=== PATIENT | male | born 1940 | race African-American/Black ===

== ENCOUNTER 2020-04-19 05:56 | Inpatient (IN) | payer BC ==
[2020-04-19] VITALS (15 sets, daily range): BP systolic 115–143; BP diastolic 53–83
[~2020-04-19] VITALS: Ht 172.7 cm; Wt 83.9 kg
[~2020-04-19 05:56] MED LIST: ACIPHEX20 MG ORAL; ASPIR 8181 MG ORAL; ATIVAN2 MG ORAL; ATORVASTATIN CA10 MG ORAL; CELEBREX200 MG ORAL; CIPRO500 MG PO; GLIPIZIDE ER10 MG ORAL; GLUCOPHAGE500 MG ORAL; HYDROMORPHONE HC2 M1 PO; IBUPROFEN800 MG PO; Insulin SUBQ; JANUVIA25 MG ORAL; LEVEMIR FL100 UNIT/1 SUBQ; LIPITOR10 MG PO; LISINOPRIL40 MG ORAL; METFORMIN HCL500 M1 ORAL; METFORMIN HCL500 MG PO; NORCO 5-325 TA1 EACH ORAL; NORVASC10 MG ORAL; OXYCODON-ACETA1 EAC2 ORAL; PIOGLITAZONE45 MG ORAL; ROBAXIN-750750 MG PO; TACTINAL500 M1 PO; TAPAZOLE10 MG ORAL; TEMAZEPAM30 MG ORAL; VICTOZA 3-0.6 MG/0.1 SQ; ZESTRIL10 MG ORAL
[2020-04-19] MEDS ORDERED: ceFAZolin sod 1 GM in NS 55 ML IVPB ONE (07:00)
[2020-04-19] MEDS ORDERED: Thrombin 5000 units spray kit TOPIC ONE (07:15)
[2020-04-19] MEDS ORDERED: Vancomycin 1gm vial IVPB ONE (07:15)
[2020-04-19] MEDS ORDERED: EPINEPHrine 1mg/1ml Amp ONE (07:15)
[2020-04-19] MEDS ORDERED: Bacitracin 50000 Units Vial ONE ×2 (07:16→07:23)
[2020-04-19] MEDS ORDERED: Thrombin 5000 units TOPIC ONE ×2 (07:16→07:38)
[2020-04-19] MEDS ORDERED: Lidocaine 1% Plain 30 ml INJ ONE (07:16)
[2020-04-19] MEDS ORDERED: Bupivacaine 0.5% Inj 30 ml vial INJ ONE (07:16)
[2020-04-19] MEDS ORDERED: Gelfoam Size TOPIC ONE (07:16)
[2020-04-19] MEDS ORDERED: Bupivacaine w/Epi 0.25% 50ml vial INJ ONE (07:16)
[2020-04-19] MEDS ORDERED: Gelatin Sponge,Absorbable Syr TP ONE (07:23)
[2020-04-19] MEDS ORDERED: fentaNYL 100 mcg/2 mL IV ONE (07:31)
[2020-04-19] MEDS ORDERED: Lidocaine 1% MPF 10mg/ml 5ml ONE (07:32)
[2020-04-19] MEDS ORDERED: Rocuronium Bromide 50mg/5ml Inj IV ONE (07:37)
[2020-04-19] MEDS ORDERED: Succinylcholine 20mg/ml 10ml vial ONE (07:37)
--- NOTE | 2020-04-19 08:38 | Anethesia Preoperative Eval ---
Anesthesia Pre-op PMH/ROS General Date of Evaluation: Apr 19, 2020 Time of Evaluation: 08:32 Anesthesiologist: Víctor ASA Score: ASA 3 Mallampati Score Class I : Soft palate, uvula, fauces, pillars visible Class II: Soft palate, uvula, fauces visible Class III: Soft palate, base of uvula visible Class IV: Only hard plate visible Mallampati Classification: Class II Surgeon: Annmarie Diagnosis: Lumbar radiculopathy Surgical Procedure: Revision of lumbar fusion Anesthesia History: none Family History: no anesthesia problems Allergies: Coded Allergies: CODEINE (Verified Allergy, Unknown, 01/25/11) WARFARIN (Verified Allergy, Unknown, 10/22/08) Uncoded Allergies: CODEINE/WARFARIN (Allergy, Intermediate, STOMACH ACHE, 10/13/12) Medications: see eMAR Patient NPO?: Yes Past Medical History Cardiovascular: Reports: HTN; Denies: CAD, OK, valve dz, arrhythmia, other Pulmonary: Denies: asthma, COPD, KHARI, other Gastrointestinal/Genitourinary: Reports: GERD; Denies: CRI, ESRD, other Neurologic/Psychiatric: Reports: depression/anxiety, other - chronic pain; Denies: dementia, CVA, TIA Endocrine: Reports: DM - on insulin poorly controled; Denies: hypothyroidism, steroids, other HEENT: Reports: cataract (L), cataract (R) - s/p bilateral Sx; Denies: glaucoma, NAVAJO (L), NAVAJO (R), other Hematology/Immune: Reports: anemia; Denies: DVT, bleeding disorder, other Musculoskeletal/Integumentary: Reports: OA PMH Narrative: as above PSxH Narrative: Multiple see H&P Anesthesia Pre-op Phys. Exam Physician Exam Last Vital Signs Date Time Temp Pulse Resp B/P (MAP) Pulse Ox O2 Delivery O2 Flow Rate FiO2 04/19/20 06:44 Room Air 04/19/20 06:36 97.0 81 18 143/76 (98) 100 Constitutional: NAD Neurologic: CN 2-12 intact Cardiovascular: RRR, no M/R/G Respiratory: CTA Gastrointestinal: S/NT/ND Airway Exam Mallampati Score: Class II MO: limited Neck: stiff ROM: limited Teeth: missing Dentures: no upper, no lower Anesthesia Pre-op A/P Labs see chart Accucheck 78 at 8AM Studies Pre-op Studies: EKG - SR Risk Assessment & Plan Assessment: ASA 3 Plan: GA with ETT prone position neuromonitoring Status Change Before Surgery: No Pre-Antibiotics Drug: Ancef 2gr. Given Within 1 Hr of Incision: Yes Time Given: 09:25 Kade Renee MD Apr 19, 2020 08:38
[2020-04-19] MEDS ORDERED: Heparin 5000 units/ml inj ONE (09:26)
--- NOTE | 2020-04-19 09:26 | Pre-Procedure Note/Attestation ---
Pre-Procedure Note/Attestation Complete Prior to Procedure Procedure Narrative: L23 psf, decompression and TLIF Indications for Procedure Pre-Operative Diagnosis: sp l3-s1 fusion, l23 hnp and discopathy Attestation I attest that I discussed the nature of the procedure; its benefits; risks and complications; and alternatives (and the risks and benefits of such alternatives), prior to the procedure, with the patient (or the patient's legal outbound call center representative). I attest that, if there was a reasonable possibility of needing a blood transfusion, the patient (or the patient's legal outbound call center representative) was given the [facility] standardized written summary, pursuant to the Wilfredo Nicole Blood Safety Act ([place] Health and Safety Code # 1645, as amended). I attest that I re-evaluated the patient just prior to the surgery and that there has been no change in the patient's H&P, except as documented below: Tacho Anguiano MD Apr 19, 2020 09:26
[2020-04-19] MEDS ORDERED: Morphine Sulfate 10mg/ml Inj ONE (09:35)
[2020-04-19] MEDS ORDERED: Sodium Chloride 10ml vial INJ ONE ×2 (09:35→10:19)
[2020-04-19] MEDS ORDERED: Acetaminophen (Non formulary) 100 ML IV ONE (10:00)
[2020-04-19] MEDS ORDERED: ePHEDrine 50mg/ml Inj ONE (10:19)
[2020-04-19] MEDS ORDERED: Neostigmine 1mg/ml 10ml Inj ONE (10:40)
[2020-04-19] MEDS ORDERED: Glycopyrrolate 0.2mg/ml 1ml Vial ONE (10:40)
[2020-04-19] MEDS ORDERED: Ketorolac 30mg Inj IV PRN (11:45)
[2020-04-19] MEDS ORDERED: LR 1000ml 1,000 ML IVLG SCH (11:45)
[2020-04-19] MEDS ORDERED: Metoclopramide 10mg/2ml Inj IVP PRN (13:00)
--- NOTE | 2020-04-19 13:12 | Brief Operative Note ---
Immediate Post Operative Note Operative Note Pre-op Diagnosis: sp l3-s1 fusion, l23 hnp and discopathy Procedure: Facetectomy and redo laminectomy L23, partial discectomy, PSF L23, revision h ardware L345 Post-op Diagnosis: same as pre-op Surgeon: bonny Line Painting Machine Operator: nona walls Anesthesiologist: sonia Anesthesia: general Specimen: yes Complications: none Condition: stable Fluids: 1200 Estimated Blood Loss: volume - 200 Drains: hemovac Implant(s) used?: Yes - Tacho Sabillon MD Apr 19, 2020 13:12
[2020-04-19] MEDS: Hydromorphone 0.5mg/0.5ml inj IVP PRN ×3 (13:35→14:14)
--- NOTE | 2020-04-19 13:37 | Immediate Post-Op Evaluation ---
Immediate Post-Op Evalulation Immediate Post-Op Evalulation Procedure: Revision of lumbar fusion with decompression at L2-L3 Date of Evaluation: Apr 19, 2020 Time of Evaluation: 13:36 IV Fluids: 1200 Blood Products: none Estimated Blood Loss: 200 Urinary Output: 300 Blood Pressure Systolic: 132 Blood Pressure Diastolic: 76 Pulse Rate: 84 Respiratory Rate: 22 O2 Sat by Pulse Oximetry: 99 Temperature (Fahrenheit): 98.3 Pain Score (1-10): 2 Nausea: No Vomiting: No Complications none Patient Status: reacts, patent, extubated, none Hydration Status: adequate Kade Renee MD Apr 19, 2020 13:37
[2020-04-19 13:51] LABS: HEMATOCRIT 27.6 % (42.0-52.0); HEMOGLOBIN 8.8 G/DL (14.2-18.0); MEAN CORPUSCULAR VOLUME 120 FL (80-99); PLATELET COUNT 372 K/UL (150-450); RED CELL DISTRIBUTION WIDTH 13.8 % (11.6-14.8); WHITE BLOOD COUNT 7.8 K/UL (4.8-10.8)
--- NOTE | 2020-04-19 14:27 | NUR ---
CASE MANAGEMENT:REVIEW 04/19/20 80YR OLD MALE HERE FOR ELECTIVE SURGERY SI: T~97.0 HR~81 RR~18 BP~143/76 SAT~100% ON RA RBC-2.30 H/H-8.8/27.6 IS: TO SURGERY FOR : REVISION OF LUMBAR FUSION W/DECOMPRESSION AT L2-L3 IV ANCEF Q8HRS IVF@100/HR IV DILAUDID PRN PAIN : CURRENTLY IN SURGERY OVER FLOW AREA
[2020-04-19] MEDS ORDERED: PCA Education Pamphlet MISC ONE (15:15)
[2020-04-19] MEDS ORDERED: PCA HYDROmorphone 30mg/30ml Syr IV PRN (15:15)
[2020-04-19] MEDS ORDERED: Rate Change PCA 1 Each MISC PRN (15:15)
--- NOTE | 2020-04-19 15:21 | NUR ---
NURSE NOTES: Patient arrived on unit. Stable. Breathing is even and unlabored on 3L oxygen via nc. Patient instructed to use call light for assistance, verbalized understanding. Surgical dressing c/d/i. Hemovac compressed and draining bloody output. Patient is in bed in locked and lowest position with call light within reach. All safety measures provided. Will continue plan of care.
[2020-04-19] MEDS: D5 1/2NS 1,000 ML IV SCH (16:30)
[2020-04-19] MEDS: Docusate 100mg cap ORAL SCH (17:59)
[2020-04-19] MEDS: ceFAZolin sod 1 GM in D5W 55 ML IV SCH (17:59)
--- NOTE | 2020-04-19 18:00 | NUR ---
NURSE NOTES: LOCKSTITCH HEMMER pamphlet and teaching given to patient. Pt verbalized understanding.
--- NOTE | 2020-04-19 18:30 | NUR ---
NURSE NOTES: hemovac: 75cc bloody output.
[2020-04-19] MEDS ORDERED: Chloraseptic Spray 20mL Bottle ORAL SCH (18:53)
[2020-04-19] MEDS: PCA shift volume MISC SCH (19:00)
[2020-04-19] MEDS ORDERED: Chloraseptic Spray 20mL Bottle ORAL PRN (19:00)
--- NOTE | 2020-04-19 19:46 | NUR ---
NURSE NOTES: Hand off to Rebecca LINK.
--- NOTE | 2020-04-19 20:29 | NUR ---
NURSES NOTE: Report received from NIKOLAY Zayas. Rounds completed. Pt in bed, A/OX4, states pain is controlled with SURGICAL RESIDENT pump Dilaudid. No outward s/s of distress noted. Breathing is even and unlabored on 3L nasal canula. Coyle in place. Hemovac in place- engaged. Dressing- posterior back is clean, dry, intact. All due medications will be administered. Bed at lowest level. Pt will continue to be monitored. Call light made available for assistance.
--- NOTE | 2020-04-19 20:29 | Consultation ---
DATE OF CONSULTATION: 04/19/2020 CONSULTING PHYSICIAN: Navneet Huitron MD. REFERRING PHYSICIAN: Tacho Anguiano MD. REASON FOR CONSULTATION: Acute pain consult. HISTORY OF PRESENT ILLNESS: Dear Dr. Tacho Anguiano, Thank you kindly for consulting me to evaluate and render an opinion as to how to proceed in the management of this patient's acute postoperative lumbar spine pain after his multiple level lumbar spine fusion surgery with instrumentation today. On your request, I saw the patient at the bedside with the nurse, NIKOLAY Zayas. I performed a detailed history and physical examination. I reviewed the medical record in detail including advanced directives. PAST MEDICAL HISTORY: 1. Acute postoperative lumbar spine pain, status post revision lumbar spine fusion surgery with instrumentation by Dr. Tacho Anguiano, April 2020. 2. Chronic lumbar spine pain. 3. Hypertension. 4. Diabetes. 5. Severe insomnia. 6. Hypercholesterolemia. PAST SURGICAL HISTORY: Three previous lumbar spine surgeries. SOCIAL HISTORY: The patient is recently , his in December 2019. The patient currently lives alone in [place], he does have support from his neighbors and his niece. The patient denies tobacco usage. 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 MEDICATIONS: At home, diabetic medications, Norvasc 10 mg daily, lisinopril, Ativan 2 mg every other day p.r.n. insomnia, temazepam 30 mg nightly p.r.n., proton pump inhibitor, and Lipitor. ALLERGIES: Codeine and warfarin. The patient has tolerated Dilaudid without difficulties. FAMILY HISTORY: Both parents in their late 80s with coronary artery disease. REVIEW OF SYSTEMS: Per Dr. Ye. PHYSICAL EXAMINATION: VITAL SIGNS: Age 80. Height 5 feet 8 inches. Weight 185 pounds. Body mass index 28. Afebrile, pulse of 65, respirations 19, blood pressure 130/73. Oxygen saturation 99%. HEENT: Normocephalic, atraumatic. GENERAL: This is an 80-year-old gentleman, who appears his stated age; however, he is a vigorous 80-year-old. He is alert and oriented. His mental acuity appears sharp. He has good communication skills and appropriate expectations for postoperative pain control. CARDIOPULMONARY: Deferred to Dr. Ye. ABDOMEN: Tender by incision area. MUSCULOSKELETAL: Pain with range of motion to lumbar spine. Hemovac drain holding suction. Moving all extremities x4. GENITOURINARY: Coyle catheter in place. LABORATORY AND DIAGNOSTIC DATA: Postoperative diagnostic testing from April 19, 2020, postop day #0 in recovery room shows white count 8, hematocrit 28, platelets 372,000. Preoperative chemistry from April 14, 2020 shows glucose 86, sodium 140, potassium 4.4, chloride 107, bicarb 24, BUN 15, creatinine 0.9. Calcium 9.5. Total protein is 8.0, albumin 4.0. AST 21, ALT 28, total bilirubin 0.5. Glycosylated hemoglobin 7.4. Sedimentation rate greater than 130. IMPRESSION: 1. Acute postoperative lumbar spine pain, status post revision lumbar spine fusion surgery with instrumentation by Dr. Tacho Anguiano, April 2020. 2. Chronic lumbar spine pain. 3. Hypertension. 4. Diabetes. 5. Severe insomnia. 6. Hypercholesterolemia. TREATMENT RECOMMENDATIONS: I spoke with the hospital pharmacist, Vielka. We will start the patient on Dilaudid ELECTRIC FAN ASSEMBLER with a 0.2 mg demand dose at 12-minute lockout and 1 mg 1-hour limit. There will be no underlying basal or continuous rate, to lower the risk of respiratory depression. Currently, the patient appears wide-awake with no signs of respiratory distress. The patient admits to smoking high dose marijuana for over 65 years. In that regard, I will place him on Marinol 2.5 mg orally every 12 hours at 9 a.m. and 9 p.m. If this dose is well tolerated and the patient shows no signs of oversedation, I will consider increasing the dosing to every 8-hour frequency. In addition to the ELECTRIC FAN ASSEMBLER, I have added a breakthrough dose of Dilaudid 0.5 mg intravenously every two hours p.r.n. for severe breakthrough pain. The patient states that he uses high dose benzodiazepines either Ativan 2 mg or temazepam, Restoril 30 mg every other night for severe insomnia. I removed the lorazepam, Ativan from his drug medication options, but we will permit a p.r.n. dose of temazepam for severe insomnia. I have written detailed instructions for the nursing and pharmacy departments to be certain to wait at least 60 minutes between any doses of sedating, pain or narcotic agents, to avoid respiratory depression in this elderly gentleman. The patient chronically uses a proton pump inhibitor. I have restarted Protonix at 40 mg daily and I have also added a p.r.n. dose of Mylanta 30 mL every 6 hours in case of any GERD symptom exacerbation. Zofran is available as a rescue antiemetic. I have ordered Benadryl 25 mg orally every 6 hours p.r.n. for any itching complaints. I have asked nursing to place Chloraseptic spray at the bedside to help with postoperative sore throat complaints. Dr. Anguiano's has requested for the Coyle catheter to be removed early tomorrow morning on postoperative day #1. I have ordered Flomax 0.4 mg to be dosed tonight, to help reduce the risk for urinary retention in this elderly gentleman. Dr. Ye's cardiology consultation is appreciated for the patient's multiple medical illnesses including diabetes and hypertension. We will follow the output from the indwelling lumbar spine drain catheter and physical therapy will start as tolerated. The patient does live at home, but does have a good support system with his niece and neighbors. We will see how the patient progresses with physical therapy to determine if he can return home with his social support system, or if he needs to transfer to a rehab facility postoperatively. I have ordered an incentive spirometer to encourage good pulmonary toilet with his chronic smoking history. I will defer DVT prophylaxis to the surgeon. Navneet Huitron M.D. DR: DAIN JOB#: [id number] CC:
[2020-04-19] MEDS: Tamsulosin 0.4mg cap ORAL SCH (21:30)
[2020-04-19] MEDS: Dronabinol 2.5mg Cap ORAL SCH (21:30)
[2020-04-20] VITALS: BP 148/60
[2020-04-20] MEDS: Hydromorphone 0.5mg/0.5ml inj IVP PRN ×5 (00:17→18:36)
[2020-04-20] MEDS: ceFAZolin sod 1 GM in D5W 55 ML IV SCH ×2 (02:26→09:22)
[2020-04-20] MEDS: D5 1/2NS 1,000 ML IV SCH ×3 (02:27→21:50)
[2020-04-20 04:00] VITALS: BP 114/69
--- NOTE | 2020-04-20 06:48 | NUR ---
NURSE HAND-OFF: Important Events on Shift:[ Requested end title co2 reader for pt x2 from PT. Has not delivered it yet. Pt stood by side of bed this AM. Requested to walk to restroom however pt has sharp shooting pains to left hip making gait very unreliable. Suggested once PT walks with him he will be able to use BR with assist.] Patient Status: [stable] Diet: [clear liquid] Pending Orders: [n/a] Pending Results/Labs:[AM labs still pending] Pending MD notification:[n/a] Latest Vital Signs: Temperature 96.9 , Pulse 75 , B/P 114 /69 , Respiratory Rate 20 , O2 SAT 98 , Nasal Cannula, O2 Flow Rate 3 . Vital Sign Comment: [wnl] Latest Alberts Fall Score: 35 Fall Risk: Safety Measures: Call light Within Reach, Bed Alarm Zone 2, Side Rails Side Rails x2, Bed position Low and Locked. Fall Precautions: Yellow Socks Patient Fall Education Report given to [].
[2020-04-20] MEDS: PCA shift volume MISC SCH ×2 (07:00→19:00)
--- NOTE | 2020-04-20 07:43 | 48 Hour Post Anesthesia Eval ---
Post Anesthesia Evaluation Procedure: Revision of lumbar fusion with decompression at L2-L3 Date of Evaluation: Apr 20, 2020 Time of Evaluation: 07:42 Blood Pressure Systolic: 136 0: 72 Pulse Rate: 68 Respiratory Rate: 20 Temperature (Fahrenheit): 97.8 O2 Sat by Pulse Oximetry: 98 Airway: patent Nausea: No Vomiting: No Pain Intensity: 3 Hydration Status: adequate Cardiopulmonary Status: stable Mental Status/LOC: patient returned to baseline Follow-up Care/Observations: n/a Post-Anesthesia Complications: none Follow-up care needed: N/A Kade Renee MD Apr 20, 2020 07:43
--- NOTE | 2020-04-20 07:50 | NUR ---
HAND OFF: Report given to NIKOLAY Tovar.
[2020-04-20 08:00] VITALS: BP 142/72
--- NOTE | 2020-04-20 08:11 | NUR ---
NURSE NOTES: Dr. Renee ordered Bed side glucose AC/HS and average insulin sliding. Order read back and will put it in.
[2020-04-20 09:02] LABS: HEMATOCRIT 29.7 % (42.0-52.0); HEMOGLOBIN 9.3 G/DL (14.2-18.0); MEAN CORPUSCULAR VOLUME 123 FL (80-99); PLATELET COUNT 383 K/UL (150-450); RED CELL DISTRIBUTION WIDTH 13.8 % (11.6-14.8); WHITE BLOOD COUNT 6.9 K/UL (4.8-10.8)
--- NOTE | 2020-04-20 09:10 | NUR ---
PT EVALUATION NOTE Patient seen for initial evaluation and treatment initiated. Patient presents with impaired functional mobility and pain s/p lumbar surgery. Patient instructed in log roll technique for in/OOB and in back precautions. Patient required CGA/min assist for bed mobility and transfers with FWW. Patient able to ambulate 50 ft with CGA and FWW, slowed pace and guarded. Patient will benefit from skilled inpatient PT intervention to improve postural stability for improved level of functional mobility, safety and compliance with back precautions. Recommend discharge home with home PT for home safety evaluation once medically cleared by MD. Recommend raised toilet seat for home, patient states he has a FWW at home. Addendum: 04/20/20 at 1314 by SHY CISSE PT Amended: Links added.
[2020-04-20] MEDS: Docusate 100mg cap ORAL SCH ×2 (09:22→17:23)
[2020-04-20] MEDS: Dronabinol 2.5mg Cap ORAL SCH ×2 (09:22→17:23)
--- NOTE | 2020-04-20 10:56 | NUR ---
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
--- NOTE | 2020-04-20 11:01 | NUR ---
NURSE NOTES: Dr. Garcia called and reconcile home medications. Order read back and will put it in.
[2020-04-20 12:00] VITALS: BP 152/75
[2020-04-20] MEDS: Lisinopril 20mg tab ORAL SCH (12:25)
[2020-04-20] MEDS ORDERED: Tamsulosin 0.4mg cap ORAL SCH (13:00)
--- NOTE | 2020-04-20 13:01 | Pain Management Progress Note ---
Allergies: Coded Allergies: CODEINE (Verified Allergy, Unknown, 01/25/11) WARFARIN (Verified Allergy, Unknown, 10/22/08) Uncoded Allergies: CODEINE/WARFARIN (Allergy, Intermediate, STOMACH ACHE, 10/13/12) Vitals Vital Signs Date Time Temp Pulse Resp B/P (MAP) Pulse Ox O2 Delivery O2 Flow Rate FiO2 04/20/20 12:25 152/75 04/20/20 12:25 83 152/75 04/20/20 12:00 97.2 83 20 152/75 (100) 96 04/20/20 12:00 83 20 96 04/20/20 09:00 Room Air 04/20/20 08:03 98 Room Air 21 04/20/20 08:00 97.3 83 19 142/72 (95) 98 04/20/20 08:00 83 19 98 04/20/20 07:43 68 20 98 Medications Current Medications Acetaminophen (Tylenol) 650 mg Q4H PRN ORAL headache; Start 04/19/20 at 13:00; Stop 05/19/20 at 12:59 Al Hydroxide/Mg Hydroxide (Mylanta) 30 ml Q6H PRN ORAL gerd; Start 04/19/20 at 19:00; Stop 05/19/20 at 18:59 Amlodipine Besylate (Norvasc) 5 mg DAILY ORAL Last administered on 04/20/20at 12:25; Start 04/20/20 at 11:15; Stop 05/20/20 at 11:14 Dextrose (Dextrose 50%) 25 ml Q30M PRN IV Hypoglycemia; Start 04/20/20 at 08:15; Stop 07/19/20 at 08:14 Dextrose (Dextrose 50%) 50 ml Q30M PRN IV Hypoglycemia; Start 04/20/20 at 08:15; Stop 07/19/20 at 08:14 Dextrose/Sodium Chloride 1,000 ml @ 100 mls/hr Q10H IV Last administered on 04/20/20at 02:27; Start 04/19/20 at 16:30; Stop 05/19/20 at 16:29 Diphenhydramine HCl (Benadryl) 25 mg Q6H PRN ORAL Itching; Start 04/19/20 at 19:00; Stop 05/19/20 at 18:59 Docusate Sodium (Colace) 100 mg TWICE A DAY ORAL Last administered on 04/20/20at 09:22; Start 04/19/20 at 18:00; Stop 05/19/20 at 17:59 Dronabinol (Marinol) 2.5 mg Q12H ORAL Last administered on 04/20/20at 09:22; Start 04/19/20 at 21:00; Stop 07/18/20 at 20:59 Hydromorphone HCl 30 ml @ 0 mls/hr Q24H PRN IV For Pain Last administered on 04/19/20at 18:00; Start 04/19/20 at 15:15; Stop 04/21/20 at 15:14 Hydromorphone HCl (Dilaudid) 0.5 mg Q2H PRN IVP Severe Breakthru Pain (>7) Last administered on 04/20/20at 12:25; Start 04/19/20 at 19:00; Stop 04/26/20 at 18:59 Insulin Aspart (NovoLOG) BEFORE MEALS AND HS SUBQ ; Start 04/20/20 at 11:30; Stop 07/19/20 at 11:29 Insulin Detemir (Levemir) 20 units BEDTIME SUBQ ; Start 04/20/20 at 21:00; Stop 07/19/20 at 20:59 Lisinopril (PriniviL) 40 mg DAILY ORAL Last administered on 04/20/20at 12:25; Start 04/20/20 at 11:15; Stop 05/20/20 at 11:14 Miscellaneous Medication (AERIAL CROP DUSTER Rate Change) 1 ea DAILY PRN MISC AERIAL CROP DUSTER RATE CHANGE; Start 04/19/20 at 15:15; Stop 04/21/20 at 15:14 Miscellaneous Medication (AERIAL CROP DUSTER shift volume) 1 ea Q12HR@0700,1900 MISC Last administered on 04/20/20at 07:00; Start 04/19/20 at 19:00; Stop 04/21/20 at 18:59 Naloxone HCl (Narcan) 0.1 mg Q1M PRN IV RR<10/min OR SBP<90 mmHg; Start 04/19/20 at 15:15; Stop 04/21/20 at 15:14 Ondansetron HCl (Zofran) 4 mg Q6H PRN IVP Nausea & Vomiting; Start 04/19/20 at 13:00; Stop 05/19/20 at 12:59 Pantoprazole (Protonix) 40 mg BEDTIME ORAL Last administered on 04/19/20at 21:30; Start 04/19/20 at 21:00; Stop 05/19/20 at 20:59 Phenol/Menthol (Chloraseptic) 1 spray Q2H PRN ORAL sore throat Last adminis tered on 04/19/20at 21:44; Start 04/19/20 at 19:00; Stop 07/18/20 at 18:59 Tamsulosin HCl (Flomax) 0.4 mg BEDTIME ORAL Last administered on 04/19/20at 21:30; Start 04/19/20 at 21:00; Stop 05/19/20 at 20:59 Temazepam (Restoril) 30 mg HSPRN PRN ORAL Insomnia; Start 04/19/20 at 19:00; Stop 04/26/20 at 12:59 Laboratory Laboratory Tests 04/19/20 13:45: White Blood Count 7.8, Red Blood Count 2.30L, Hemoglobin 8.8L, Hematocrit 27.6L, Mean Corpuscular Volume 120H, Mean Corpuscular Hemoglobin 38.4H, Mean Corpuscular Hemoglobin Concent 32.0, Red Cell Distribution Width 13.8, Platelet Count 372, Mean Platelet Volume 6.1L, Neutrophils (%) (Auto) , Lymphocytes (%) (Auto) , Monocytes (%) (Auto) , Eosinophils (%) (Auto) , Basophils (%) (Auto) , Differential Total Cells Counted 100, Neutrophils % (Manual) 79H, Lymphocytes % (Manual) 16L, Monocytes % (Manual) 4, Eosinophils % (Manual) 1, Basophils % (Manual) 0, Band Neutrophils 0, Platelet Estimate Adequate, Platelet Morphology Normal, Hypochromasia 1+ 04/20/20 07:15: White Blood Count 6.9, Red Blood Count 2.40L, Hemoglobin 9.3L, Hematocrit 29.7L, Mean Corpuscular Volume 123H, Mean Corpuscular Hemoglobin 38.5H, Mean Corpuscular Hemoglobin Concent 31.2L, Red Cell Distribution Width 13.8, Platelet Count 383, Mean Platelet Volume 6.3L, Neutrophils (%) (Auto) , Lymphocytes (%) (Auto) , Monocytes (%) (Auto) , Eosinophils (%) (Auto) , Basophils (%) (Auto) , Differential Total Cells Counted 100, Neutrophils % (Manual) 78H, Lymphocytes % (Manual) 16L, Monocytes % (Manual) 6, Eosinophils % (Manual) 0, Basophils % (Manual) 0, Band Neutrophils 0, Platelet Estimate Adequate, Platelet Morphology Normal, Hypochromasia 1+, Macrocytosis 1+ Plan: Patient seen with nursing RN Guy. Hemovac drain output 120cc overnight; continue to monitor output. Pain level 7 / 10 on the visual-analog pain scale. Continue AERIAL CROP DUSTER as ordered for another 24 hours. Marinol working well. No evidence for oversedation. No SOB/CP. Increase marinol frequency to q8 hours. MAR medication list reviewed. PRN dilaudid being used often. Encouraged AERIAL CROP DUSTER usage. Pt states percocets tolerated in past; will trial tomorrow prn to help wean-off AERIAL CROP DUSTER. Liquid diet 'fairly' tolerated despite intermittent emesis. Switch clear liquids to diabetic clears. Continue IV hydration. After ALIF-->GI: No BS; No flatus; No BM. Await improvement in GI fx. Will dose with Mylanta for GERD symptoms. Has not yet voided urine after wheeler removed in AM. Flomax dosed last night. Will redose with urecholine now, in hopes to avoid wheeler re-insertion. Encourage incentive spirometer usage. Encourage advancing ambulation with physical therapy as tolerated. Out of bed & walking around room this morning. SCDs for mechanical prophylaxis against deep venous thrombosis and PEs. Rx needed for outpatient pain medication usage, unless pt txfrs to rehab facility. Navneet Huitron MD Apr 20, 2020 13:01
--- NOTE | 2020-04-20 13:02 | NUR ---
INSURANCE CLINICALS/REVIEW FAXED TO [facility] #[phone] FAX# [phone]
[2020-04-20] MEDS: NovoLOG Insulin Flexpen SUBQ SCH ×3 (13:15→20:13)
[2020-04-20] MEDS ORDERED: Bethanechol 25mg Tab ORAL SCH (13:15)
--- NOTE | 2020-04-20 13:47 | NUR ---
NURSE NOTES: Dr. Garcia came and changed order to amlodipine 5 mg BID PO (Hold if SBP < 120). Order read back and put it in. Addendum: 04/20/20 at 1948 by Sandra Iraheta RN ADDENDUM Dr. Garcia ordered synthroid 150 mcg daily po.
--- NOTE | 2020-04-20 13:51 | NUR ---
PT NOTE Patient sitting up in bedside chair eating lunch, requesting to defer PT treatment until tomorrow. PT treatment deferred per patient request, Guy LINK notified. Will follow up tomorrow.
--- NOTE | 2020-04-20 14:09 | Cardiology Progress Note ---
Assessment/Plan Status: doing well Status Narrative 1. HTN 2. DM 3. LS spine discogenic Dz, s/p LS spine surgery 4. 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 Denies CP, ambulated Objective Last 24 Hour Vital Signs Date Time Temp Pulse Resp B/P (MAP) Pulse Ox O2 Delivery O2 Flow Rate FiO2 04/20/20 12:25 152/75 04/20/20 12:25 83 152/75 04/20/20 12:00 97.2 83 20 152/75 (100) 96 04/20/20 12:00 83 20 96 04/20/20 09:00 Room Air 04/20/20 08:03 98 Room Air 21 04/20/20 08:00 97.3 83 19 142/72 (95) 98 04/20/20 08:00 83 19 98 04/20/20 07:43 68 20 98 04/20/20 04:00 75 20 98 04/20/20 04:00 96.9 75 20 114/69 (84) 98 04/20/20 00:00 97.2 71 20 148/60 (89) 98 04/20/20 00:00 71 20 98 04/19/20 21:00 Room Air 04/19/20 20:00 73 20 94 04/19/20 20:00 97.1 73 20 131/83 (99) 97 04/19/20 18:33 97.9 75 19 130/73 (92) 99 04/19/20 16:00 97.7 80 18 126/69 (88) 99 04/19/20 15:30 97.7 81 18 122/68 (86) 99 04/19/20 15:00 98.2 83 18 115/53 (73) 99 04/19/20 14:50 97.3 76 20 125/61 100 Nasal Cannula 3 04/19/20 14:44 97.3 04/19/20 14:35 75 21 134/63 100 Nasal Cannula 3 04/19/20 14:22 97.3 04/19/20 14:22 97.3 04/19/20 14:21 76 16 142/64 100 Simple Mask 6 04/19/20 14:14 81 15 126/72 100 Simple Mask 6 04/19/20 14:05 98.1 04/19/20 13:59 79 19 138/57 100 Simple Mask 6 Neck: non-tender, supple Cardiovascular: normal rate, regular rhythm Respiratory/Chest: lungs clear Abdomen: non tender, soft Extremities: non-tender, normal inspection Intake and Output 04/19/20 04/20/20 19:00 07:00 Intake Total 1400 ml 480 ml Output Total 775 ml 470 ml Balance 625 ml 10 ml Intake Oral 480 ml IV Total 1400 ml Output Urine Total 400 ml 350 ml Drainage Total 175 ml 120 ml Estimated Blood Loss 200 ml Laboratory Tests Test 04/20/20 07:15 White Blood Count 6.9 K/UL (4.8-10.8) Red Blood Count 2.40 M/UL (4.70-6.10) L Hemoglobin 9.3 G/DL (14.2-18.0) L Hematocrit 29.7 % (42.0-52.0) L Mean Corpuscular Volume 123 FL (80-99) H Mean Corpuscular Hemoglobin 38.5 PG (27.0-31.0) H Mean Corpuscular Hemoglobin Concent 31.2 G/DL (32.0-36.0) L Red Cell Distribution Width 13.8 % (11.6-14.8) Platelet Count 383 K/UL (150-450) Mean Platelet Volume 6.3 FL (6.5-10.1) L Neutrophils (%) (Auto) % (45.0-75.0) Lymphocytes (%) (Auto) % (20.0-45.0) Monocytes (%) (Auto) % (1.0-10.0) Eosinophils (%) (Auto) % (0.0-3.0) Basophils (%) (Auto) % (0.0-2.0) Differential Total Cells Counted 100 Neutrophils % (Manual) 78 % (45-75) H Lymphocytes % (Manual) 16 % (20-45) L Monocytes % (Manual) 6 % (1-10) Eosinophils % (Manual) 0 % (0-3) Basophils % (Manual) 0 % (0-2) Band Neutrophils 0 % (0-8) Platelet Estimate Adequate Platelet Morphology Normal Hypochromasia 1+ Macrocytosis 1+ Shemar Garcia MD Apr 20, 2020 14:09
--- NOTE | 2020-04-20 15:47 | Diagnostic Imaging Report ---
INDICATION: Pain, intraoperative TECHNIQUE: Intraoperative imaging Fluoroscopy time: 16.3 seconds Total dose: 0.41317 mGym2 Total number of images: 5 COMPARISON: None FINDINGS: Intraoperative images document surgical fusion of the lower lumbar spine IMPRESSION: Intraoperative imaging, as described
--- NOTE | 2020-04-20 15:48 | Diagnostic Imaging Report ---
Indication: Back pain, status post surgery Technique: One view of the lumbar spine Comparison: none Findings: Single lateral view demonstrates posterior hardware fusing L2-L5, as well as a disc spacer at L3-4. Hardware appears intact and well aligned. Impression: Postoperative lumbar spine. No unusual features
[2020-04-20 16:00] VITALS: BP 142/72
[2020-04-20] MEDS: GlipiZIDE 5mg tab ORAL SCH (17:23)
--- NOTE | 2020-04-20 18:26 | Orthopedic Spine Progress Note ---
Ortho Spine - Progress Note Subjective Symptoms: c/o post-op back pain Objective Vital Signs: Last 24 Hour Vital Signs Date Time Temp Pulse Resp B/P (MAP) Pulse Ox O2 Delivery O2 Flow Rate FiO2 04/20/20 16:00 98 20 99 04/20/20 16:00 97.6 98 20 142/72 (95) 99 04/20/20 12:25 152/75 04/20/20 12:25 83 152/75 04/20/20 12:00 97.2 83 20 152/75 (100) 96 04/20/20 12:00 83 20 96 04/20/20 09:00 Room Air 04/20/20 08:03 98 Room Air 21 04/20/20 08:00 97.3 83 19 142/72 (95) 98 04/20/20 08:00 83 19 98 04/20/20 07:43 68 20 98 04/20/20 04:00 75 20 98 04/20/20 04:00 96.9 75 20 114/69 (84) 98 04/20/20 00:00 97.2 71 20 148/60 (89) 98 04/20/20 00:00 71 20 98 04/19/20 21:00 Room Air 04/19/20 20:00 73 20 94 04/19/20 20:00 97.1 73 20 131/83 (99) 97 04/19/20 18:33 97.9 75 19 130/73 (92) 99 I&O: Intake and Output 04/19/20 04/20/20 19:00 07:00 Intake Total 1400 ml 480 ml Output Total 775 ml 470 ml Balance 625 ml 10 ml Intake Oral 480 ml IV Total 1400 ml Output Urine Total 400 ml 350 ml Drainage Total 175 ml 120 ml Estimated Blood Loss 200 ml Wound: clean, intact Neuro Status: abnormal - still with weakness BLE, same as preop Assessment Procedure Performed: Facetectomy and redo laminectomy L23, partial discectomy, PSF L23, revision hardware L345 Plan Plan: PT, pain management, continue drain Additional Comments: xrays reviewed, interbody space l23 partially preserved in standing position Tacho Anguiano MD Apr 20, 2020 18:26
--- NOTE | 2020-04-20 19:00 | NUR ---
NURSE HAND-OFF: Important Events on Shift:Hemovac 80ml Patient Status: stable Diet: CCHO Full liquid Pending Orders: n/a Pending Results/Labs:n/a Pending MD notification:n/a Latest Vital Signs: Temperature 97.6 , Pulse 98 , B/P 142 /72 , Respiratory Rate 20 , O2 SAT 97 , Nasal Cannula, O2 Flow Rate 3 . Vital Sign Comment: stable Latest Alberts Fall Score: 35 Fall Risk: Safety Measures: Call light Within Reach, Bed Alarm Zone 2, Side Rails Side Rails x2, Bed position Low and Locked. Fall Precautions: Yellow Socks Patient Fall Education Report given to NIKOLAY Laureano.
--- NOTE | 2020-04-20 19:00 | NUR ---
NURSE NOTES: received pt from NIKOLAY Tovar. pt alert and oriented x 4 with no acute s/s of distress at the moment and no co pain. RN ANESTHESIOLOGY running, IV site celan dry and intact. surgical dressing celan dry and intact. hemovac draining. plan of care discussed.
[2020-04-20 20:00] VITALS: BP 141/68
[2020-04-20] MEDS: Tamsulosin 0.4mg cap ORAL SCH (20:09)
[2020-04-20] MEDS: Atorvastatin 20mg tab ORAL SCH (20:10)
[2020-04-20] MEDS: Levemir Flexpen SUBQ SCH (20:11)
--- NOTE | 2020-04-20 20:44 | Operative Note - Dictated ---
DATE OF OPERATION: 04/19/2020 SURGEON: Tacho Anguiano MD GEOSCIENCE TECHNICIAN: Mark Trejo PA-C ANESTHESIOLOGIST: Kade Renee MD ANESTHESIA TYPE: General endotracheal anesthesia. PREOPERATIVE DIAGNOSES: Status post spinal fusion L3 through L5 with advanced discopathy, adjacent level arthrosis, and calcified disk herniation at L2-L3 with severe right lower extremity radiculopathy. POSTOPERATIVE DIAGNOSES: Status post spinal fusion L3 through L5 with advanced discopathy, adjacent level arthrosis, and calcified disk herniation at L2-L3 with severe right lower extremity radiculopathy with advanced discogenic collapse and severely calcified disk herniation. OPERATION PERFORMED: 1. Redo laminectomy, right side L2, L3. 2. Complete facetectomy, right side L2, L3. 3. Lysis of adhesions. 4. Attempted diskectomy unsuccessful with an attempt to perform a transforaminal interbody fusion and implant placement. 5. Partial corpectomy, right side L2 and L3, performed through a posterior approach. 6. Removal of hardware (rods L3, L4, L5) bilaterally. 7. Placement of new pedicle screws at L2 bilaterally and replacing the pedicle screw on right side at L3. 8. Skeletonization and neurolysis of the L2 nerve root. 9. Posterior spinal fusion, L2-L3. 10. Pedicle screw stimulation. 11. Neurodiagnostic monitoring. 12. Use of fluoroscopy. 13. Use of operating microscope. INDICATIONS: The patient is a very pleasant gentleman who is well known to myself, status post prior spinal fusion L3 through S1. He has hardware with screw placement at L3, L4, and L5 bilaterally. He presented with severe and intractable back pain with radiculopathy down the right lower extremity. MRI confirmed a large disk extrusion at the L2-L3 level. At the time of surgery, it was noted that this disk herniation had calcified and had obliterated the neural foramen. As the patient's pathology was quite intense, surgical intervention was required. RISK NOTE: The patient was explained in detail risks, benefits of surgery to include, but not be limited to those of bleeding, infection, damage to nerves/vessels/tendons, anesthetic risk, allergic reaction, aspiration, possibly . The patient understood and wished to proceed. OPERATIVE PROCEDURE IN DETAIL: The patient was taken to the operating suite. After general endotracheal anesthesia was obtained, Coyle catheter was placed. He was turned prone onto a radiolucent Richy frame. Time-out was completed. The back was prepped and draped in the usual sterile fashion. A midline incision was carried out after the skin was infiltrated with Marcaine with epinephrine. The incision was carried out from one and a half inches above his prior incision and then down to the L5 level through the prior incision. The dissection was carried out at the L2 and L3 level under fluoroscopic guidance. Subperiosteal dissection was carried out. The dissection was then carried to the posterolateral corners where the hardware was identified and palpated. Extensive scar tissue was encountered and meticulous dissection through the scarred and altered tissue was performed. The dissection was carried out to the screw heads at L3, L4, and L5 and systematically the screw heads were debrided of soft tissue and any bony overgrowth. The locking caps were removed and the vertical rods were removed. At this point, this was performed bilaterally. The tissues were then packed off. The attention was turned to the L3 screw head on the right side and the screw was removed so as to allow for microscopic visualization and the intended transforaminal interbody fusion. At this point, the lamina of L2 and the leading edge lamina of L3 was identified. The facet joint was noted to be markedly hypertrophic. At this point, using a high-speed drill, the facet was completely burred out as well as the lamina of L2 and the superior portion of L3. Ligamentum flavum was removed in a piecemeal fashion. The spinal canal and dura was extremely compressed at this level. Attention was turned to and identification of the lateral margin of the dural sac was encountered. The dural sac was gently retracted medially. The disk underneath was severely enlarged, calcified, and extruded. Multiple attempts were made to perform a diskectomy; however, this was completely calcified, making its removal very dangerous for the nerve. At this point, an osteotome, mallet, and down-pushing curettes were then utilized to perform partial corpectomy at the posterolateral corner of the vertebral body so as to allow for invagination of the extruded disk fragment, which was then removed in a piecemeal fashion. Once the decompression of the canal was achieved as well as the nerve root, multiple attempts were made to perform the TLIF procedure by entering the disk space. A paddle distractor was placed into the disk; however, even the smallest paddle distractor would not allow for mobilization of the disk due to severe collapse. At this point, it was felt that it would be safer to abort the TLIF component of the procedure. We were quite satisfied with the posterolateral decompression. Meticulous hemostasis was achieved. A 2 liter irrigation was performed. Pedicle screws were then serially placed at L2 and the screw at L3 was replaced using standard anatomic and fluoroscopic guidelines/technique. Once all the screws were placed, pedicle screw stimulation was performed and all pedicle screws namely L2 bilaterally and L3 on right side were well above 20 milliamps. Please note that the L3 pedicle screw was 5.5 mm x 50 was taken out and a 6.5 x [address]. At this point, the proper-length rods were measured, contoured, and applied to the screws. The screw heads were aligned and the locking knots were applied and they were torqued to the appropriate level. Copious irrigation was once again performed. At this point, the decortication of the facet joint as well as lamina of L2 and L3 on the left side was achieved. The local bone, which was harvested, was then morcellized and packed into the posterolateral corner and into the facet joints of L2-L3 on the left side. At this point, decision was made to close. One gram of vancomycin powder was then deployed deep to the fascia. Fascia was repaired using #1 Vicryl, subcu closure using 2-0 Vicryl, Dermabond and sterile dressing was applied. Medium-sized Hemovac drain was placed deep to the fascia. At the end of the procedure, the patient was turned onto his back, awakened, extubated, and transferred to recovery room in stable condition. Tacho Anguiano M.D. DR: Wale JOB#: [id number] CC:
[2020-04-21] VITALS: BP 136/69
[2020-04-21] MEDS: Dronabinol 2.5mg Cap ORAL SCH ×3 (00:01→17:22)
--- NOTE | 2020-04-21 00:15 | NUR ---
NURSE NOTES: pt vital signs stable at this time, no acute s/s of distress, no request for breakthrough pain medication at this time. pt now currently asleep. no labored breathing, O2 saturation good.
[2020-04-21 04:00] VITALS: BP 121/60
--- NOTE | 2020-04-21 04:10 | NUR ---
NURSE NOTES: pt asleep currently, vital signs are stable, pt breathing rate within normal range, pt O2 saturation good. no request for breakthrough pain medication at the moment. no other s/s of acute distress observed.
[2020-04-21] MEDS: GlipiZIDE 5mg tab ORAL SCH ×2 (05:56→17:22)
[2020-04-21] MEDS: NovoLOG Insulin Flexpen SUBQ SCH ×4 (05:57→20:30)
--- NOTE | 2020-04-21 06:53 | NUR ---
NURSE HAND-OFF: Important Events on Shift: pain management, IV start Patient Status: stable Diet: consistent carb Pending Orders: NA Pending Results/Labs:NA Pending MD notification:NA Latest Vital Signs: Temperature 97.3 , Pulse 103 , B/P 121 /60 , Respiratory Rate 18 , O2 SAT 97 , Nasal Cannula, O2 Flow Rate 3 . Vital Sign Comment: stable through the shift Latest Alberts Fall Score: 35 Fall Risk: Safety Measures: Call light Within Reach, Bed Alarm Zone 2, Side Rails Side Rails x2, Bed position Low and Locked. Fall Precautions: Yellow Socks Patient Fall Education Report will be given to Sandra Tovar RN.
[2020-04-21] MEDS: PCA shift volume MISC SCH (07:28)
--- NOTE | 2020-04-21 07:30 | NUR ---
NURSE NOTES: Received report from NIKOLAY Laureano. Rounding done with outgoing nurse. Pt a/o x 4, in the chair with lumbar brace on. No SOB noted with using PLAYGROUND EQUIPMENT ERECTOR. Denies any pain at this time. Pt mentioned he could not sleep well last night. D51/2NS is running @ 100ml/hr via Lt FA IV access. Back surgical site dressing is dry/intact. Hemovac is in placed. Bed in lowest position, call light within reach. Will continue to monitor.
[2020-04-21 08:00] VITALS: BP 111/52
[2020-04-21] MEDS: Docusate 100mg cap ORAL SCH ×2 (08:20→17:22)
[2020-04-21] MEDS: Lisinopril 20mg tab ORAL SCH (08:21)
[2020-04-21] MEDS: D5 1/2NS 1,000 ML IV SCH (08:21)
[2020-04-21] MEDS ORDERED: GLIPIZIDE XL10 M1 ORAL (09:23)
[2020-04-21] MEDS ORDERED: LEVEMIR FL100 UNIT/2 SQ (09:23)
[2020-04-21] MEDS ORDERED: PRINIVIL10 MG ORAL (09:23)
[2020-04-21] MEDS ORDERED: PROPRANOLOL HCL10 MG ORAL (09:52)
[2020-04-21] MEDS ORDERED: RABEPRAZOLE SOD PO (09:52)
[2020-04-21] MEDS ORDERED: TRULICITY1.5 MG/0.5 SQ (09:52)
[2020-04-21] MEDS ORDERED: oxyCODONE 5mg IR tab ORAL SCH (10:38)
--- NOTE | 2020-04-21 10:54 | Pain Management Progress Note ---
Allergies: Coded Allergies: CODEINE (Verified Allergy, Unknown, 01/25/11) WARFARIN (Verified Allergy, Unknown, 10/22/08) Uncoded Allergies: CODEINE/WARFARIN (Allergy, Intermediate, STOMACH ACHE, 10/13/12) Vitals Vital Signs Date Time Temp Pulse Resp B/P (MAP) Pulse Ox O2 Delivery O2 Flow Rate FiO2 04/21/20 08:21 104 111/52 04/21/20 08:21 111/52 04/21/20 08:18 97 Room Air 21 04/21/20 08:00 104 20 100 04/21/20 08:00 99.0 104 20 111/52 (71) 100 04/21/20 04:00 103 18 97 04/21/20 04:00 97.3 103 18 121/60 (80) 97 Medications Current Medications Acetaminophen (Tylenol) 650 mg Q4H PRN ORAL headache; Start 04/19/20 at 13:00; Stop 05/19/20 at 12:59 Al Hydroxide/Mg Hydroxide (Mylanta) 30 ml Q6H PRN ORAL gerd; Start 04/19/20 at 19:00; Stop 05/19/20 at 18:59 Amlodipine Besylate (Norvasc) 5 mg Q12HR ORAL Last administered on 04/20/20at 20:10; Start 04/20/20 at 21:00; Stop 05/20/20 at 20:59 Atorvastatin Calcium (Lipitor) 10 mg BEDTIME ORAL Last administered on 04/20/20at 20:10; Start 04/20/20 at 21:00; Stop 07/19/20 at 20:59 Dextrose (Dextrose 50%) 25 ml Q30M PRN IV Hypoglycemia; Start 04/20/20 at 08:15; Stop 07/19/20 at 08:14 Dextrose (Dextrose 50%) 50 ml Q30M PRN IV Hypoglycemia; Start 04/20/20 at 08:15 ; Stop 07/19/20 at 08:14 Diphenhydramine HCl (Benadryl) 25 mg Q6H PRN ORAL Itching; Start 04/19/20 at 19:00; Stop 05/19/20 at 18:59 Docusate Sodium (Colace) 100 mg TWICE A DAY ORAL Last administered on 04/21/20at 08:20; Start 04/19/20 at 18:00; Stop 05/19/20 at 17:59 Dronabinol (Marinol) 2.5 mg Q8H ORAL Last administered on 04/21/20at 08:20; Start 04/20/20 at 17:00; Stop 07/18/20 at 20:59 Glipizide (Glucotrol) 10 mg BIAC ORAL Last administered on 04/21/20at 05:56; Start 04/20/20 at 16:30; Stop 05/20/20 at 16:29 Hydromorphone HCl (Dilaudid) 0.5 mg Q2H PRN IVP Severe Breakthru Pain (>7) Last administered on 04/20/20at 18:36; Start 04/19/20 at 19:00; Stop 04/26/20 at 18:59 Insulin Aspart (NovoLOG) BEFORE MEALS AND HS SUBQ Last administered on 04/21/20at 05:57; Start 04/20/20 at 11:30; Stop 07/19/20 at 11:29 Insulin Detemir (Levemir) 20 units BEDTIME SUBQ Last administered on 04/20/20at 20:11; Start 04/20/20 at 21:00; Stop 07/19/20 at 20:59 Levothyroxine Sodium (Synthroid) 150 mcg DAILY@0630 ORAL Last administered on 04/21/20at 05:57; Start 04/21/20 at 06:30; Stop 05/21/20 at 06:29 Lisinopril (PriniviL) 40 mg DAILY ORAL Last administered on 04/20/20at 12:25; Start 04/20/20 at 11:15; Stop 05/20/20 at 11:14 Ondansetron HCl (Zofran) 4 mg Q6H PRN IVP Nausea & Vomiting; Start 04/19/20 at 13:00; Stop 05/19/20 at 12:59 Oxycodone HCl (Roxicodone) 10 mg Q3H PRN ORAL Moderate Breakthru Pain (5-7); Start 04/20/20 at 13:15; Stop 04/27/20 at 13:14 Pantoprazole (Protonix) 40 mg BEDTIME ORAL Last administered on 04/20/20at 20:1 0; Start 04/19/20 at 21:00; Stop 05/19/20 at 20:59 Tamsulosin HCl (Flomax) 0.4 mg BEDTIME ORAL Last administered on 04/20/20at 20 :09; Start 04/19/20 at 21:00; Stop 05/19/20 at 20:59 Temazepam (Restoril) 30 mg HSPRN PRN ORAL Insomnia; Start 04/19/20 at 19:00; Stop 04/26/20 at 12:59 Plan: Patient seen with nursing NIKOLAY Tovar. Discussed with spine srgn Dr. Anguiano. Pain level 5 / 10 on the visual-analog pain scale. Marinol working well. No evidence for oversedation. No SOB/CP. Increased marinol frequency yesterday to q8 hours tolerated well; will continue current dosing. MAR medication list reviewed. PRN dilaudid + THEATRICAL SCENIC DESIGNER used less frequently overnight. Will trial-off THEATRICAL SCENIC DESIGNER now. As pt states percocets tolerated in past, & nausea now resolved, will alternate po prn oxycodone-IR with prn IV Dilaudid while pt remains in the hospital. Intermittent emesis resolved, and started passing flatus. Will trial diabetic soft this am. D/c IV hydration since tolerating good po intake currently.. After ALIF-->GI: + BS; + flatus; No BM. Protonix & Mylanta helping for GERD symptoms. Voiding urine well after wheeler removed yesterday. Encourage incentive spirometer usage with chronic heavy marijuana smoking usage. Encourage advancing ambulation with physical therapy as tolerated. Pt lives alone in [place], but states that his niece can assist with ADL, and the pt also has very good neighbors who can help-out. We will monitor how pt progresses with walking before clearing for hospital discharge. Srgn Dr. Anguiano following status closely. Continue ambulation & SCDs for mechanical prophylaxis against deep venous thrombosis and PEs. Rx for Percocet #50 provided for outpatient pain medication usage; RN to try to have outpt pharmacy fill Rx today to help expedite discharge planning. Hemovac drain output 60cc overnight. With the NIKOLAY Tovar at bedside, lumbar spine wound site dressing removed sterilely. Suture line appears dry and intact. No erythema or exudate noted. At end-expiration, with the hemovac drain taken [id number], I personally removed the indwelling lumbar spine drain catheter sterilely. Tip intact. Drain hole swabbed with alcohol. Dressing with sterile bandage and 4"x4" gauze. No complications. Navneet Huitrno MD Apr 21, 2020 10:54
--- NOTE | 2020-04-21 11:00 | NUR ---
NURSE NOTES: Received d/c prescription from Dr. Huitron and fax sent to [facility] pharmacy. They called they do not have meds any more. Prescription will be given when pt d/c.
[2020-04-21 12:00] VITALS: BP 126/69
--- NOTE | 2020-04-21 14:24 | NUR ---
CASE MANAGEMENT:REVIEW 04/21/20 SI: POD#2 S/P REVISION OF LUMBAR FUSION 99.6 104 20 126/69 99% ON RA IS: OXYCODONE PO X1 SYNTHROID PO QD LIPITOR PO QHS NORVASC PO Q12 MARINOL PO Q8HRS GLIPIZIDE PO BID AC LISINOPRIL PO QD : MED/SURG STATUS DCP; FROM HOME PLAN:
[2020-04-21 16:00] VITALS: BP 117/59
[2020-04-21] MEDS: oxyCODONE 5mg IR tab ORAL PRN (17:24)
--- NOTE | 2020-04-21 17:27 | NUR ---
INSURANCE CLINICALS/REVIEW FAXED TO [facility] #[phone] FAX# [phone]
--- NOTE | 2020-04-21 19:00 | NUR ---
NURSE HAND-OFF: Important Events on Shift: D/C Homovac/PRINCIPAL SCIENTIST/IV fluid Patient Status: stable Diet: CCHO (M) soft easy chew Pending Orders: n/a Pending Results/Labs:n/a Pending MD notification:n/a Latest Vital Signs: Temperature 97.9 , Pulse 98 , B/P 117 /59 , Respiratory Rate 20 , O2 SAT 97 , Nasal Cannula, O2 Flow Rate 3 . Vital Sign Comment: stable Latest Alberts Fall Score: 35 Fall Risk: Safety Measures: Call light Within Reach, Bed Alarm Zone 2, Side Rails Side Rails x2, Bed position Low and Locked. Fall Precautions: Yellow Socks Patient Fall Education Report given to NIKOLAY Toth.
--- NOTE | 2020-04-21 19:25 | NUR ---
NURSE NOTES: Received report from NIKOLAY Tovar. Pt is A&Ox4 in no pain or distress at this time. Dressing is dry and intact. Patient is able to use the urinal, call light within reach, bed locked and in lowest position. Patient is able to make needs known. Will continue to monitor.
[2020-04-21 20:00] VITALS: BP 131/58
[2020-04-21] MEDS: Atorvastatin 20mg tab ORAL SCH (20:28)
[2020-04-21] MEDS: Tamsulosin 0.4mg cap ORAL SCH (20:28)
[2020-04-21] MEDS: Levemir Flexpen SUBQ SCH (20:29)
[2020-04-21] MEDS: Hydromorphone 0.5mg/0.5ml inj IVP PRN (20:29)
[2020-04-22] VITALS (9 sets, daily range): BP systolic 112–156; BP diastolic 58–92
[2020-04-22] MEDS: Dronabinol 2.5mg Cap ORAL SCH ×3 (00:59→16:39)
[2020-04-22] MEDS: Hydromorphone 0.5mg/0.5ml inj IVP PRN ×5 (02:05→16:40)
[2020-04-22] MEDS: GlipiZIDE 5mg tab ORAL SCH ×2 (06:06→16:39)
[2020-04-22] MEDS: oxyCODONE 5mg IR tab ORAL PRN ×2 (06:08→13:42)
[2020-04-22] MEDS: NovoLOG Insulin Flexpen SUBQ SCH ×4 (06:12→20:49)
--- NOTE | 2020-04-22 07:08 | NUR ---
NURSE HAND-OFF: Important Events on Shift: Pain management Patient Status: calm Diet: CCHO medium soft easy chew Pending Orders: Pending Results/Labs: Pending MD notification: Latest Vital Signs: Temperature 99.0 , Pulse 99 , B/P 156 /70 , Respiratory Rate 20 , O2 SAT 96 , Nasal Cannula, O2 Flow Rate 3 . Vital Sign Comment: VSS Latest Alberts Fall Score: 35 Fall Risk: Safety Measures: Call light Within Reach, Bed Alarm Zone 2, Side Rails Side Rails x2, Bed position Low and Locked. Fall Precautions: Yellow Socks Patient Fall Education Report given to NIKOLAY Zurita.
--- NOTE | 2020-04-22 07:26 | NUR ---
NURSE NOTES: Report received from Navneet LINK, rounds made. Respirations even/unlabored on RA. Patient sleeping in semi-fowlers position in bed. LFA saline lock. Call light in reach, bed in lowest position, will continue to monitor.
[2020-04-22 07:32] LABS: MEAN CORPUSCULAR VOLUME 118 FL (80-99); PLATELET COUNT 326 K/UL (150-450); RED BLOOD COUNT 1.87 M/UL (4.70-6.10); RED CELL DISTRIBUTION WIDTH 14.3 % (11.6-14.8); WHITE BLOOD COUNT 7.3 K/UL (4.8-10.8)
[2020-04-22 07:34] LABS: BASOPHILS % (AUTO) 1.9 % (0.0-2.0); EOSINOPHILS % (AUTO) 1.1 % (0.0-3.0); LYMPHOCYTES % (AUTO) 10.3 % (20.0-45.0); MONOCYTES % (AUTO) 6.3 % (1.0-10.0); NEUTROPHILS % (AUTO) 79.8 % (45.0-75.0)
--- NOTE | 2020-04-22 08:26 | NUR ---
NURSE NOTES: Dr. Anguiano notified of HH 7.0/22.0, orders to notify Dr. Ye for further orders. Message left for Dr. Ye at this time.
[2020-04-22] MEDS: Docusate 100mg cap ORAL SCH ×2 (08:47→17:06)
[2020-04-22] MEDS: Lisinopril 20mg tab ORAL SCH (08:48)
--- NOTE | 2020-04-22 09:03 | NUR ---
NURSE NOTES: Spoke with Dr. Ye, ordered to notify Dr. Garcia. Notified Dr. Garcia of 09/29, orders for Type + Cross 2 units Packed Cells, Transfuse one unit, obtain CBC after transfusion complete, will update patient, follow as ordered.
--- NOTE | 2020-04-22 09:05 | NUR ---
PT NOTE Patient with Hgb at 7.0, to receive blood transfusion. PT treatment deferred due to low Hgb, will follow.
--- NOTE | 2020-04-22 11:22 | NUR ---
CASE MANAGEMENT:REVIEW 04/22/20 SI: POD#3 S/P REVISION OF LUMBAR FUSION 98.7 94 20 136/64 96% ON RA H/H-7.0/22.0 IS: TRANSFUSE 1 UNIT PRBC'S SYNTHROID PO QD LIPITOR PO QHS NORVASC PO Q12 MARINOL PO Q8HRS GLIPIZIDE PO BID AC LISINOPRIL PO QD OXYCODONE PO Q3HRS PRN IV DILAUDID Q2HRS PRN : MED/SURG STATUS DCP; FROM HOME PLAN: TRANSFUSE NEEDED PAIN MGMT
--- NOTE | 2020-04-22 14:15 | NUR ---
NURSE NOTES: Dr. Garcia notified of Temperature 99-99.4, no further orders.
--- NOTE | 2020-04-22 14:56 | Orthopedic Spine Progress Note ---
Ortho Spine - Progress Note Subjective Symptoms: c/o post-op back pain Objective Vital Signs: Last 24 Hour Vital Signs Date Time Temp Pulse Resp B/P (MAP) Pulse Ox O2 Delivery O2 Flow Rate FiO2 04/22/20 14:45 99.5 99 18 142/66 (91) 99 04/22/20 13:45 99.4 101 16 132/63 (86) 97 04/22/20 13:15 99.0 98 16 129/58 (81) 97 04/22/20 12:00 98.1 109 20 149/92 (111) 96 04/22/20 08:48 94 136/64 04/22/20 08:48 136/64 04/22/20 08:00 98.7 94 20 136/64 (88) 96 04/22/20 04:00 99.0 99 20 156/70 (98) 96 04/22/20 00:00 99.0 95 20 112/58 (76) 97 04/21/20 21:00 Room Air 04/21/20 20:28 91 131/58 04/21/20 20:00 99.4 91 18 131/58 (82) 97 04/21/20 19:30 97 Room Air 21 04/21/20 16:00 97.9 98 20 117/59 (78) 98 I&O: Intake and Output 04/21/20 04/22/20 19:00 07:00 Intake Total 1040 ml Output Total 1100 ml Balance 1040 ml -1100 ml Intake Oral 840 ml IV Total 200 ml Output Urine Total 1100 ml # Voids 2 3 Wound: clean, intact Drains: none Neuro Status: unchanged from pre-op Assessment Procedure Performed: Facetectomy and redo laminectomy L23, partial discectomy, PSF L23, revision hardware L345 Plan Plan: PT, pain management Additional Comments: Low H/H. currently getting txn 1 u prbc-- possible dc in Tacho García MD Apr 22, 2020 14:56
--- NOTE | 2020-04-22 15:57 | Cardiology Progress Note ---
Assessment/Plan Status Narrative 1. HTN 2. DM 3. LS spine discogenic Dz, s/p LS spine surgery 4. Hypercholesterolemia 5. Anemia due to blood loss Assessment/Plan Transfuse 1 U PRBC and repeat H/H, may need second unit MOM, Colace Monitor BS Insulin PRN Monitor BP Ambulate Pain management PT/OT DVT Px Subjective Cardiovascular: Reports: no symptoms Respiratory: Reports: no symptoms Gastrointestinal/Abdominal: Reports: constipated Genitourinary: Reports: no symptoms Subjective 04/20/20- S/P LS spine surgery yesterday Pain controlled on TRADE SHOW COORDINATOR Denies CP, ambulated 04/22/20- c/o pain, Hgb down, transfusion ordered Objective Last 24 Hour Vital Signs Date Time Temp Pulse Resp B/P (MAP) Pulse Ox O2 Delivery O2 Flow Rate FiO2 04/22/20 14:45 99.5 99 18 142/66 (91) 99 04/22/20 13:45 99.4 101 16 132/63 (86) 97 04/22/20 13:15 99.0 98 16 129/58 (81) 97 04/22/20 12:00 98.1 109 20 149/92 (111) 96 04/22/20 08:48 94 136/64 04/22/20 08:48 136/64 04/22/20 08:00 98.7 94 20 136/64 (88) 96 04/22/20 04:00 99.0 99 20 156/70 (98) 96 04/22/20 00:00 99.0 95 20 112/58 (76) 97 04/21/20 21:00 Room Air 04/21/20 20:28 91 131/58 04/21/20 20:00 99.4 91 18 131/58 (82) 97 04/21/20 19:30 97 Room Air 21 04/21/20 16:00 97.9 98 20 117/59 (78) 98 Neck: normal alignment Cardiovascular: normal rate, regular rhythm, no gallop/murmur Respiratory/Chest: lungs clear Abdomen: non tender, soft, no organomegaly, no mass, distended Extremities: non-tender, normal inspection, no calf tenderness, no swelling Intake and Output 04/21/20 04/22/20 19:00 07:00 Intake Total 1040 ml Output Total 1100 ml Balance 1040 ml -1100 ml Intake Oral 840 ml IV Total 200 ml Output Urine Total 1100 ml # Voids 2 3 Laboratory Tests Test 04/22/20 06:50 White Blood Count 7.3 K/UL (4.8-10.8) Red Blood Count 1.87 M/UL (4.70-6.10) L Hemoglobin 7.0 G/DL (14.2-18.0) L Hematocrit 22.0 % (42.0-52.0) L Mean Corpuscular Volume 118 FL (80-99) H Mean Corpuscular Hemoglobin 37.7 PG (27.0-31.0) H Mean Corpuscular Hemoglobin Concent 32.1 G/DL (32.0-36.0) Red Cell Distribution Width 14.3 % (11.6-14.8) Platelet Count 326 K/UL (150-450) Mean Platelet Volume 6.6 FL (6.5-10.1) Neutrophils (%) (Auto) 79.8 % (45.0-75.0) H Lymphocytes (%) (Auto) 10.3 % (20.0-45.0) L Monocytes (%) (Auto) 6.3 % (1.0-10.0) Eosinophils (%) (Auto) 1.1 % (0.0-3.0) Basophils (%) (Auto) 1.9 % (0.0-2.0) Shemar Garcia MD Apr 22, 2020 15:57
--- NOTE | 2020-04-22 16:00 | NUR ---
NURSE NOTES: PRBCs one unit transfusion started at 1330 and completed at 1600. No adverse reaction noted. CBC to be obtained at 1730.
--- NOTE | 2020-04-22 16:22 | NUR ---
INSURANCE CLINICALS/REVIEW FAXED TO [facility] #[phone] FAX# [phone]
[2020-04-22] MEDS: Mineral Oil 30ml ud ORAL PRN (16:39)
[2020-04-22 18:28] LABS: HEMATOCRIT 27.1 % (42.0-52.0); HEMOGLOBIN 8.6 G/DL (14.2-18.0); MEAN CORPUSCULAR VOLUME 116 FL (80-99); PLATELET COUNT 333 K/UL (150-450); RED BLOOD COUNT 2.34 M/UL (4.70-6.10); RED CELL DISTRIBUTION WIDTH 15.9 % (11.6-14.8); WHITE BLOOD COUNT 7.4 K/UL (4.8-10.8)
--- NOTE | 2020-04-22 19:20 | NUR ---
NURSE HAND-OFF: Important Events on Shift:Transfused 1 unit PRBCs, CBC done after transfusion complete, Temp 99-99.5 (Dr. Garcia aware), Mineral Oil x1, Dilaudid 0.5 mg IV x3, Roxicodone PO x1, Patient Status: stable Diet: CCHO med, soft easy chew Pending Orders: none Pending Results/Labs:CBC post transfusion results, need to be called to Dr. Garcia Pending MD notification: CBC results Latest Vital Signs: Temperature 99.5 , Pulse 101 , B/P 139 /66 , Respiratory Rate 18 , O2 SAT 99 , Nasal Cannula, O2 Flow Rate 3 . Vital Sign Comment:monitor temperature Latest Alberts Fall Score: 35 Fall Risk: Safety Measures: Call light Within Reach, Bed Alarm Zone 2, Side Rails Side Rails x2, Bed position Low and Locked. Fall Precautions: Yellow Socks Patient Fall Education Report given to Navneet LINK.
--- NOTE | 2020-04-22 19:25 | NUR ---
NURSE NOTES: Received report from NIKOLAY Zurita. Pt is in bed, A&Ox4, with no pain and in no distress at this time. 1 unit of blood was administered during the day. Pt likely to be discharged tomorrow, call light within reach, bed locked and in lowest position. Will continue to monitor.
[2020-04-22] MEDS: Atorvastatin 20mg tab ORAL SCH (20:48)
[2020-04-22] MEDS: Tamsulosin 0.4mg cap ORAL SCH (20:48)
[2020-04-22] MEDS: Levemir Flexpen SUBQ SCH (20:49)
--- NOTE | 2020-04-22 22:50 | NUR ---
2nd unit of PRBC tranfusion begun, will monitor for adverse reactions.
[2020-04-23] VITALS (7 sets, daily range): BP systolic 112–166; BP diastolic 54–81
[2020-04-23] MEDS: Dronabinol 2.5mg Cap ORAL SCH ×3 (01:00→17:04)
--- NOTE | 2020-04-23 01:50 | NUR ---
NURSE NOTES: 2nd unit of PRBC infused, no adverse reactions present, will continue to monitor.
[2020-04-23] MEDS: NovoLOG Insulin Flexpen SUBQ SCH ×4 (06:30→20:31)
[2020-04-23] MEDS: GlipiZIDE 5mg tab ORAL SCH ×2 (06:41→17:04)
[2020-04-23] MEDS: Hydromorphone 0.5mg/0.5ml inj IVP PRN (06:53)
--- NOTE | 2020-04-23 07:25 | NUR ---
NURSE HAND-OFF: Important Events on Shift: Dilaudid x1, 1 unit PRBC infused Patient Status: calm Diet: ccho medium soft easy chew Pending Orders: Pending Results/Labs: Pending MD notification: Latest Vital Signs: Temperature 99.4 , Pulse 85 , B/P 112 /54 , Respiratory Rate 20 , O2 SAT 97 , Nasal Cannula, O2 Flow Rate 3 . Vital Sign Comment: VSS Latest Alberts Fall Score: 35 Fall Risk: Safety Measures: Call light Within Reach, Bed Alarm Zone 2, Side Rails Side Rails x2, Bed position Low and Locked. Fall Precautions: Yellow Socks Patient Fall Education Report given to NIKOLAY Zurita.
--- NOTE | 2020-04-23 07:30 | NUR ---
NURSE NOTES: Report received from Navneet LINK, rounds made. Patient AOx4, calm,resting in semi-fowlers position in bed. Respirations even/unlabored on RA. LFA saline lock. Back pain improved, 08/18, will medicate as ordered. Neuros intact, skin warm, wiggles, moves all extremities, no NT. Plans for PT today. Will change surgical dressing as ordered. Call light in reach, bed in lowest position, will continue to monitor.
[2020-04-23] MEDS: Docusate 100mg cap ORAL SCH ×2 (09:27→17:04)
[2020-04-23] MEDS: Mineral Oil 30ml ud ORAL PRN (09:27)
[2020-04-23] MEDS: Lisinopril 20mg tab ORAL SCH (09:28)
--- NOTE | 2020-04-23 10:30 | NUR ---
NURSE NOTES: Received call from patient family member, June ([email or web address]), updated on patient current status, will tell patient to call her as she requested.
[2020-04-23] MEDS: oxyCODONE 5mg IR tab ORAL PRN ×3 (11:10→20:21)
--- NOTE | 2020-04-23 11:15 | NUR ---
NURSE NOTES: Received call from Dr. Garcia, updated on patient current status, vitals, and pain level. Orders for STAT CBC and Dr. Garcia will call me back for results. Lab notified of STAT order, spoke with Nikki. Will update patient.
--- NOTE | 2020-04-23 12:20 | NUR ---
NURSE NOTES: Received call from Dr. Anguiano, updated on patient current status, labs, vitals, pain, PT, discharge plans. Will follow up with Dr. Garcia for further orders.
[2020-04-23 12:24] LABS: BASOPHILS % (AUTO) 1.3 % (0.0-2.0); EOSINOPHILS % (AUTO) 2.2 % (0.0-3.0); HEMATOCRIT 27.5 % (42.0-52.0); HEMOGLOBIN 9.1 G/DL (14.2-18.0); LYMPHOCYTES % (AUTO) 18.6 % (20.0-45.0); MEAN CORPUSCULAR VOLUME 109 FL (80-99); MONOCYTES % (AUTO) 6.4 % (1.0-10.0); NEUTROPHILS % (AUTO) 71.5 % (45.0-75.0); PLATELET COUNT 347 K/UL (150-450); RED BLOOD COUNT 2.52 M/UL (4.70-6.10); RED CELL DISTRIBUTION WIDTH 16.7 % (11.6-14.8); WHITE BLOOD COUNT 6.8 K/UL (4.8-10.8)
--- NOTE | 2020-04-23 12:37 | Cardiology Progress Note ---
Assessment/Plan Status Narrative 1. HTN 2. DM 3. LS spine discogenic Dz, s/p LS spine surgery 4. Hypercholesterolemia 5. Anemia due to blood loss - improved Assessment/Plan MOM, Colace Monitor BS Insulin PRN Monitor BP Ambulate Pain management PT/OT DVT Px DC as per Dr. Anguiano Subjective Cardiovascular: Reports: no symptoms Respiratory: Reports: no symptoms Gastrointestinal/Abdominal: Reports: constipated Genitourinary: Reports: no symptoms Subjective 04/20/20- S/P LS spine surgery yesterday Pain controlled on SOCIAL MEDIA SR STRATEGY MANAGER Denies CP, ambulated 04/22/20- c/o pain, Hgb down, transfusion ordered 04/23- s/p transfusion of 2 U PRBC yesterday Hgb 9.1 , Feeling much better Objective Last 24 Hour Vital Signs Date Time Temp Pulse Resp B/P (MAP) Pulse Ox O2 Delivery O2 Flow Rate FiO2 04/23/20 09:28 97 166/73 04/23/20 09:28 166/73 04/23/20 09:00 Room Air 04/23/20 08:00 99.4 97 20 166/73 (104) 98 04/23/20 04:00 99.4 85 20 112/54 (73) 97 04/23/20 00:00 99.3 89 18 146/70 (95) 98 04/22/20 21:00 Room Air 04/22/20 20:48 94 154/65 04/22/20 20:00 99.1 94 20 154/65 (94) 97 04/22/20 16:00 99.5 101 18 139/66 (90) 99 04/22/20 14:45 99.5 99 18 142/66 (91) 99 04/22/20 13:45 99.4 101 16 132/63 (86) 97 04/22/20 13:15 99.0 98 16 129/58 (81) 97 Cardiovascular: normal rate Respiratory/Chest: lungs clear Abdomen: non tender, soft Extremities: non-tender, normal inspection, no calf tenderness, no swelling Intake and Output 04/22/20 04/23/20 19:00 07:00 Intake Total 250 ml Output Total 1125 ml 900 ml Balance -875 ml -900 ml Blood Product 250 ml Output Urine Total 1125 ml 900 ml # Voids 1 3 Laboratory Tests Test 04/22/20 18:00 04/23/20 11:35 White Blood Count 7.4 K/UL (4.8-10.8) 6.8 K/UL (4.8-10.8) Red Blood Count 2.34 M/UL (4.70-6.10) L 2.52 M/UL (4.70-6.10) L Hemoglobin 8.6 G/DL (14.2-18.0) L 9.1 G/DL (14.2-18.0) L Hematocrit 27.1 % (42.0-52.0) L 27.5 % (42.0-52.0) L Mean Corpuscular Volume 116 FL (80-99) H 109 FL (80-99) H Mean Corpuscular Hemoglobin 36.8 PG (27.0-31.0) H 36.3 PG (27.0-31.0) H Mean Corpuscular Hemoglobin Concent 31.9 G/DL (32.0-36.0) L 33.3 G/DL (32.0-36.0) Red Cell Distribution Width 15.9 % (11.6-14.8) H 16.7 % (11.6-14.8) H Platelet Count 333 K/UL (150-450) 347 K/UL (150-450) Mean Platelet Volume 6.1 FL (6.5-10.1) L 6.1 FL (6.5-10.1) L Neutrophils (%) (Auto) % (45.0-75.0) 71.5 % (45.0-75.0) Lymphocytes (%) (Auto) % (20.0-45.0) 18.6 % (20.0-45.0) L Monocytes (%) (Auto) % (1.0-10.0) 6.4 % (1.0-10.0) Eosinophils (%) (Auto) % (0.0-3.0) 2.2 % (0.0-3.0) Basophils (%) (Auto) % (0.0-2.0) 1.3 % (0.0-2.0) Differential Total Cells Counted 100 Neutrophils % (Manual) 83 % (45-75) H Lymphocytes % (Manual) 14 % (20-45) L Monocytes % (Manual) 3 % (1-10) Eosinophils % (Manual) 0 % (0-3) Basophils % (Manual) 0 % (0-2) Band Neutrophils 0 % (0-8) Platelet Estimate Adequate Platelet Morphology Normal Hypochromasia 1+ Anisocytosis 1+ Macrocytosis 1+ Shemar Garcia MD Apr 23, 2020 12:37
--- NOTE | 2020-04-23 17:23 | NUR ---
NURSE NOTES: Noted Rx Pharmacy Fax cover sheet in chart (dated 04/21) with original RX, no security label in chart. Checked with patient whether he received any medication from [facility] pharmacy, patient denied. Called downstairs pharmacy, to check if patient RX (Percocet) was filled at the [facility] and delivered to them, confirmed they do not have any filled prescription for this patient in pharmacy. Will give patient the original prescription to take with him to fill at his pharmacy upon discharge.
--- NOTE | 2020-04-23 17:31 | NUR ---
NURSE NOTES: Received call from patient's niece, June, regarding discharge plans for today, states, " I'm upset and I'm trying to understand why my uncle will be discharged today after he received two units of blood yesterday." Asked for Dr. Anguiano phone number so she can call him. Provided Dr. Anguiano office number [phone]. Addendum: 04/23/20 at 1740 by Yudith Daly RN Explained to gumzan that patient was cleared by Dr. Garcia and discharge was related to health insurance purposes.
--- NOTE | 2020-04-23 17:46 | NUR ---
NURSE NOTES: No BM yet, administered scheduled colace and Mineral Oil PRN, see eMAR. Provided prune juice per patient request. Surgical dressing changed at 1700 as ordered. Surrounding skin intact, no redness/swelling, dermabond intact, applied 4x4 with island dressing.
--- NOTE | 2020-04-23 17:58 | NUR ---
NURSE NOTES: Received call from Dr. Anguiano, orders to hold discharge for today, due to patient lives alone, orders for CM consult for [facility] if he qualifies, if not then check for SNF placement. Will update patient.
--- NOTE | 2020-04-23 19:35 | NUR ---
NURSE HAND-OFF: Important Events on Shift:Discharge cancelled, DCP for [facility] if qualifies, if not then SNF, PT ambulated in halls x2 with brace, surgical dressing changed, no BM (Mineral Oil, Colace, Prune Juice), STAT CBC (HH9.1/27.5), DME needed from central (raised toilet seat, FWW) Patient Status: stable Diet: CCHO med, soft easy chew Pending Orders: CM for [facility]/SNF, DME Pending Results/Labs:none Pending MD notification:none Latest Vital Signs: Temperature 99.1 , Pulse 86 , B/P 157 /73 , Respiratory Rate 20 , O2 SAT 98 , Nasal Cannula, O2 Flow Rate 3 . Vital Sign Comment: monitor BP Latest Alberts Fall Score: 35 Fall Risk: Safety Measures: Call light Within Reach, Bed Alarm Zone 2, Side Rails Side Rails x2, Bed position Low and Locked. Fall Precautions: Yellow Socks Patient Fall Education Report given to Amarilys LINK.
--- NOTE | 2020-04-23 19:40 | NUR ---
NURSE NOTES: Patient AOx4. On room air with no signs of distress or SOB. Patient C/O pain in the legs - Will administer pain medication as ordered. Call light in reach. Bed locked and in lowest position. Will continue plan of care.
[2020-04-23] MEDS: Tamsulosin 0.4mg cap ORAL SCH (20:22)
[2020-04-23] MEDS: Atorvastatin 20mg tab ORAL SCH (20:22)
[2020-04-23] MEDS: Levemir Flexpen SUBQ SCH (20:28)
--- NOTE | 2020-04-23 22:36 | Orthopedic Spine Progress Note ---
Ortho Spine - Progress Note Subjective Symptoms: c/o post-op back pain, unchanged - persistent ble weakness Objective Vital Signs: Last 24 Hour Vital Signs Date Time Temp Pulse Resp B/P (MAP) Pulse Ox O2 Delivery O2 Flow Rate FiO2 04/23/20 20:22 97 150/81 04/23/20 16:00 99.1 86 20 157/73 (101) 98 04/23/20 12:00 99.2 87 20 152/68 (96) 98 04/23/20 09:28 97 166/73 04/23/20 09:28 166/73 04/23/20 09:00 Room Air 04/23/20 08:00 99.4 97 20 166/73 (104) 98 04/23/20 04:00 99.4 85 20 112/54 (73) 97 04/23/20 00:00 99.3 89 18 146/70 (95) 98 I&O: Intake and Output 04/22/20 04/23/20 19:00 07:00 Intake Total 250 ml Output Total 1125 ml 900 ml Balance -875 ml -900 ml Blood Product 250 ml Output Urine Total 1125 ml 900 ml # Voids 1 3 Wound: clean, intact Drains: none Neuro Status: unchanged from pre-op Assessment Procedure Performed: Facetectomy and redo laminectomy L23, partial discectomy, PSF L23, revision hardware L345 Plan Plan: PT, discharge plan - consider [facility] vs snf-- pt lives alone Tacho Anguiano MD Apr 23, 2020 22:36
[2020-04-24] MEDS: Dronabinol 2.5mg Cap ORAL SCH ×3 (00:34→16:44)
[2020-04-24 03:59] VITALS: BP 148/79
[2020-04-24] MEDS: GlipiZIDE 5mg tab ORAL SCH ×2 (05:48→16:43)
[2020-04-24] MEDS: oxyCODONE 5mg IR tab ORAL PRN ×5 (05:54→21:06)
[2020-04-24] MEDS: NovoLOG Insulin Flexpen SUBQ SCH ×4 (05:57→21:15)
--- NOTE | 2020-04-24 06:40 | NUR ---
NURSE HAND-OFF: Important Events on Shift: No acute events Patient Status: Stable Diet: CCHO (med) soft easy chew Pending Orders: N/A Pending Results/Labs: No AM labs Pending MD notification: N/A Latest Vital Signs: Temperature 98.2 , Pulse 78 , B/P 148 /79 , Respiratory Rate 16 , O2 SAT 99 , Nasal Cannula, O2 Flow Rate 3 . Vital Sign Comment: N/A Latest Alberts Fall Score: 35 Fall Risk: Safety Measures: Call light Within Reach, Bed Alarm Zone 2, Side Rails Side Rails x2, Bed position Low and Locked. Fall Precautions: Yellow Socks Patient Fall Education
--- NOTE | 2020-04-24 07:45 | NUR ---
NURSE NOTES: Pt lying in bed w/bed in lowest position and call light within reach. Pt A&Ox4, VSS, and in no apparent distress. IV site intact/asymptomatic & H/L'd and surgical dressing C/D/I. Pt scheduled to be D/C'd to [facility]. Will continue to monitor.
[2020-04-24 08:00] VITALS: BP 143/74
[2020-04-24] MEDS: Docusate 100mg cap ORAL SCH ×2 (08:14→16:43)
[2020-04-24] MEDS: Lisinopril 20mg tab ORAL SCH (08:15)
[2020-04-24 12:00] VITALS: BP 119/74
[2020-04-24] MEDS: Mineral Oil 30ml ud ORAL PRN (14:58)
[2020-04-24 16:00] VITALS: BP 140/65
--- NOTE | 2020-04-24 19:15 | NUR ---
NURSE HAND-OFF: Important Events on Shift: Pt ambulated twice w/PT; spoke w/Deisi Castroer [ ] from [facility] ([facility]) regarding pt's transfer to facility and she instructed me to fax pt's info to [facility] [F: ]; attempted to fax requested info twice but there was no (fax) answer; CM to f/u tomorrow. Patient Status: Stable Diet: CCHO (medium) soft, easy chew Pending Orders: D/C to [facility] Pending Results/Labs: None Pending MD notification: None Latest Vital Signs: Temperature 98.9 , Pulse 94 , B/P 140 /65 , Respiratory Rate 20 , O2 SAT 97 , Nasal Cannula, O2 Flow Rate 3 . Vital Sign Comment: Stable Latest Alberts Fall Score: 35 Fall Risk: Safety Measures: Call light Within Reach, Bed Alarm Zone 2, Side Rails Side Rails x2, Bed position Low and Locked. Fall Precautions: Yellow Socks Patient Fall Education Report given to NIKOLAY Panda.
--- NOTE | 2020-04-24 19:23 | NUR ---
NURSE NOTES: Patient AOx4. On room air with no signs of distress or SOB. IV intact and patent. Call light in reach. Bed locked and in lowest position. Will continue plan of care.
[2020-04-24 20:00] VITALS: BP 120/59
[2020-04-24] MEDS: Levemir Flexpen SUBQ SCH (21:00)
[2020-04-24] MEDS: Tamsulosin 0.4mg cap ORAL SCH (21:06)
[2020-04-24] MEDS: Atorvastatin 20mg tab ORAL SCH (21:07)
[2020-04-25] VITALS: BP 137/71
[2020-04-25] MEDS: Dronabinol 2.5mg Cap ORAL SCH ×3 (01:33→18:36)
[2020-04-25 04:00] VITALS: BP 115/75
[2020-04-25] MEDS: GlipiZIDE 5mg tab ORAL SCH ×2 (06:11→17:33)
[2020-04-25] MEDS: NovoLOG Insulin Flexpen SUBQ SCH ×4 (06:19→20:26)
--- NOTE | 2020-04-25 07:10 | NUR ---
NURSE NOTES: Hand-off report received from Amarilys Álvarez RN. Patient in stable condition, alert and oriented x4, able to state name, time, , current events and situation. Breathing even and unlabored on room air, vitals WNL, bed in lowest and locked position, bed alarm on, call light within reach, side rails up x2.
--- NOTE | 2020-04-25 07:52 | NUR ---
NURSE HAND-OFF: Important Events on Shift: No acute events Patient Status: stable Diet: CCHO med Pending Orders: Possible discharge Pending Results/Labs:No am labs Pending MD notification: N/A Latest Vital Signs: Temperature 98.2 , Pulse 92 , B/P 115 /75 , Respiratory Rate 18 , O2 SAT 97 , Nasal Cannula, O2 Flow Rate 3 . Vital Sign Comment: [] Latest Alberts Fall Score: 35 Fall Risk: Safety Measures: Call light Within Reach, Bed Alarm Zone 2, Side Rails Side Rails x2, Bed position Low and Locked. Fall Precautions: Yellow Socks Patient Fall Education Report given to NIKOLAY Lopez.
[2020-04-25 08:00] VITALS: BP 123/63
--- NOTE | 2020-04-25 09:03 | NUR ---
NURSE NOTES: Ambulating with physical therapist with FWW and extensive assist.
[2020-04-25] MEDS: Lisinopril 20mg tab ORAL SCH (09:28)
[2020-04-25] MEDS: Docusate 100mg cap ORAL SCH ×2 (09:28→17:55)
--- NOTE | 2020-04-25 10:22 | NUR ---
NURSE NOTES: Dr. Underwood came to see patient and assessed the patient. Patient is tired but level of consciousness is at baseline (x4). Able to state name, , current events, situation and still is able to express needs well.
--- NOTE | 2020-04-25 10:54 | NUR ---
NURSE NOTES: Left a voicemail for the Case Management department regarding the status of this patient's discharge. Awaiting call back response. All four ext. numbers of case management not responding to calls yet.
--- NOTE | 2020-04-25 11:57 | NUR ---
CASE MANAGEMENT:REVIEW 04/25/20 SI: POD#6 S/P REVISION OF LUMBAR FUSION 98.2 84 19 123/63 98% ON RA NO LABS FOR TODAY IS: NORVASC PO Q12 SYNTHROID PO QD LIPITOR PO QHS LEVEMIR SQ QHS GLIPIZIDE PO BID LISINOPRIL PO QD FLOMAX PO QHS PROTONIX PO QHS OXYCODONE PO Q3HRS PRN : MED/SURG STATUS DCP; FROM HOME PLAN: [facility] [place]
[2020-04-25 12:00] VITALS: BP 133/72
[2020-04-25] MEDS: Hydromorphone 0.5mg/0.5ml inj IVP PRN ×4 (12:31→22:38)
--- NOTE | 2020-04-25 12:46 | NUR ---
NURSE NOTES: Dr. Anguiano gave a telephone order of MRI of lumbar spine without contrast and patient stated that he has no pacemaker. Noted and will carry out.
--- NOTE | 2020-04-25 14:01 | NUR ---
*-*DISCHARGE PLANNING*-* PATIENT HAS BEEN REFERRED TO: [facility] P: [phone] S/W AMELIA, WORKING ON AUTHORIZATION THROUGH [facility], WILL CALL BACK.
--- NOTE | 2020-04-25 14:30 | NUR ---
NURSE NOTES: Notified Alok CM. Was told that we are waiting on [facility] to send him to [facility].
--- NOTE | 2020-04-25 14:42 | Cardiology Progress Note ---
Assessment/Plan Status Narrative 1. HTN 2. DM 3. LS spine discogenic Dz, s/p LS spine surgery 4. Hypercholesterolemia 5. Anemia due to blood loss - improved post transfusion 6. Post op pain Assessment/Plan Monitor BS Insulin PRN Monitor BP Ambulate Pain management PT/OT DVT Px DC as per Dr. Anguiano F/u as outpatient Subjective ROS Limited/Unobtainable: No Cardiovascular: Reports: no symptoms Respiratory: Reports: no symptoms Gastrointestinal/Abdominal: Reports: no symptoms Genitourinary: Reports: no symptoms Subjective 04/20/20- S/P LS spine surgery yesterday Pain controlled on ECONOMIC ANALYST Denies CP, ambulated 04/22/20- c/o pain, Hgb down, transfusion ordered 04/23- s/p transfusion of 2 U PRBC yesterday Hgb 9.1 , Feeling much better 04/24 s/p transfusion 2 U PRBC Hgb 9.1 04/25- Had BM, ambulating with walker, awaiting placement at rehab Objective Last 24 Hour Vital Signs Date Time Temp Pulse Resp B/P (MAP) Pulse Ox O2 Delivery O2 Flow Rate FiO2 04/25/20 13:01 98.2 04/25/20 12:00 97.3 87 18 133/72 (92) 96 04/25/20 09:59 98.2 04/25/20 09:28 84 123/63 04/25/20 09:28 123/63 04/25/20 08:00 98.2 84 19 123/63 (83) 98 04/25/20 04:00 98.2 92 18 115/75 (88) 97 04/25/20 00:00 98.0 81 18 137/71 (93) 96 04/24/20 21:07 77 120/59 04/24/20 20:41 Room Air 04/24/20 20:00 98.4 77 16 120/59 (79) 99 04/24/20 16:00 98.9 94 20 140/65 (90) 97 Neck: non-tender, supple Cardiovascular: normal rate, regular rhythm Respiratory/Chest: lungs clear Abdomen: normal bowel sounds, non tender, soft, no organomegaly, no mass Extremities: non-tender, normal inspection, no calf tenderness, no swelling Intake and Output 04/24/20 04/25/20 19:00 07:00 Intake Total 480 ml 240 ml Output Total 750 ml Balance 480 ml -510 ml Intake Oral 480 ml 240 ml Output Urine Total 750 ml Shemar Garcia MD Apr 25, 2020 14:42
[2020-04-25 16:00] VITALS: BP 110/74
--- NOTE | 2020-04-25 16:11 | NUR ---
INSURANCE CLINICALS/REVIEW FAXED TO [facility] #[phone] FAX# [phone]
--- NOTE | 2020-04-25 16:13 | Diagnostic Imaging Report ---
Indication: Back pain, status post recent fusion surgery, persistent bilateral lower extremity weakness Technique: Sagittal T1 and T2 fast spin echo, sagittal STIR, axial T1 and T2 fast spin-echo images of the lumbar spine Comparison: Plain radiograph dated 04/20/2020, lumbar spine MRI the dated 11/09/2010, lumbar spine CT scan dated 07/29/2014 Findings: Bony alignment is normal. Conus medullaris terminates at the L1 level. There are some degenerative marrow changes but otherwise no significant marrow abnormality demonstrated. Vertebral body heights are preserved. There is posterior fusion hardware bridging L2, L3, L4, and L5. This results in considerable susceptibility artifact which limits evaluation. There is evidence of right L2 partial laminectomy, L3 and L4 laminectomies. There is also a disc spacer within the L3-4 disc which appears well-positioned. To the extent to which this can be assessed, the hardware appears to be entirely interpedicular and within the vertebral bodies. No evidence of significant bile infiltration of the neural foramina demonstrated. There is a small area of fluid posterior to the spinal canal at L4 which measures 21 mm craniocaudad by 7 mm AP by 16 mm transverse. There is edema of the soft tissues posterior to the lumbar spine. At L2-3, there is a large left paracentral disc protrusion, disc protruding approximately 8 mm posterior the posterior margin of the vertebral body. This results in marked narrowing the of the spinal canal, nearly obliterating the left side of the spinal canal. There is narrowing of the L2-3 disc as well as edema within the disc. There is mild left neural foraminal stenosis, but this is not compromised by the main disc protrusion; there is a slight left intraforaminal separate protrusion which by is probably not significant, narrowing there is mainly due to facet arthrosis. At T11-12, there is marked degenerative disc narrowing. There is circumferential annular bulge which results in moderate narrowing of the spinal canal, and correlation with short pedicles. There is moderate to severe bilateral neural foraminal stenosis at this level due to facet arthrosis. At T12-L1, no significant disc bulge or protrusion, spinal stenosis, or neural foraminal narrowing. At L1-L2, there is minimal neural foraminal stenosis due to facet arthrosis.. There is mild degenerative disc narrowing and considerable edema of the disc. There is mild neural foraminal stenosis bilaterally, predominantly due to facet arthrosis. At L3-4, there is a disc spacer. No significant disc bulge or protrusion. There is minimal bilateral neural foraminal stenosis. At L4-5, there is severe degenerative disc narrowing and possible partial ankylosis of the disc. There is mild narrowing of the bilateral neural foramina. The large disc protrusion demonstrated on the 2011 exam is not evident on this study. At L5-S1, there is severe degenerative disc narrowing with likely at least partial ankylosis of the disc. No significant disc bulge or protrusion or spinal stenosis. There is mild neural foraminal stenosis due to facet arthrosis. Included extra spinal soft tissues are remarkable for the presence of cysts Impression: Postoperative changes as described Large left paracentral disc protrusion at L3-4, markedly narrowing the cord and likely significant impingement on nerve roots, particularly those on the left. This is not evident on the prior 2011 exam Note that the large L4-5 disc protrusion seen on the prior 2011 exam is no longer evident. Findings discussed by phone with Dr. Anguiano at the time of interpretation
[2020-04-25] MEDS: oxyCODONE 5mg IR tab ORAL PRN (16:15)
--- NOTE | 2020-04-25 17:17 | Orthopedic Spine Progress Note ---
Ortho Spine - Progress Note Subjective Symptoms: c/o post-op back pain, unchanged - as compared to pre-op Objective Vital Signs: Last 24 Hour Vital Signs Date Time Temp Pulse Resp B/P (MAP) Pulse Ox O2 Delivery O2 Flow Rate FiO2 04/25/20 13:01 98.2 04/25/20 12:00 97.3 87 18 133/72 (92) 96 04/25/20 09:59 98.2 04/25/20 09:28 84 123/63 04/25/20 09:28 123/63 04/25/20 08:00 98.2 84 19 123/63 (83) 98 04/25/20 04:00 98.2 92 18 115/75 (88) 97 04/25/20 00:00 98.0 81 18 137/71 (93) 96 04/24/20 21:07 77 120/59 04/24/20 20:41 Room Air 04/24/20 20:00 98.4 77 16 120/59 (79) 99 I&O: Intake and Output 04/24/20 04/25/20 19:00 07:00 Intake Total 480 ml 240 ml Output Total 750 ml Balance 480 ml -510 ml Intake Oral 480 ml 240 ml Output Urine Total 750 ml Wound: clean Neuro Status: unchanged from pre-op Assessment Procedure Performed: Facetectomy and redo laminectomy L23, partial discectomy, PSF L23, revision hardware L345 Plan Plan: PT, pain management Additional Comments: Lspine MRI reviewed. There is residual stenosis on the L side of canal. R side is adequately decompressed. Discussed with Dr Garcia, Patient, and June (niece). Plan to take back tomorrow to further decompress as there is persistent weakness in LE. Tacho Anguiano MD Apr 25, 2020 17:17
--- NOTE | 2020-04-25 19:07 | NUR ---
NURSE HAND-OFF: Important Events on Shift: Findings on lumbar spine prompted Dr. Anguiano to postpone discharge/transfer order and to perform a re-do procedure, patient made aware, consent form signed, patient alert and oriented x4; NPO AT MIDNIGHT Patient Status: AOx4, stable condition, full code Diet: NPO AFTER MIDNIGHT Pending Orders: [] Pending Results/Labs:[] Pending MD notification:[] Latest Vital Signs: Temperature 98.2 , Pulse 86 , B/P 110 /74 , Respiratory Rate 18 , O2 SAT 97 , Nasal Cannula, O2 Flow Rate 3 . Vital Sign Comment: [] Latest Alberts Fall Score: 35 Fall Risk: Safety Measures: Call light Within Reach, Bed Alarm Zone 2, Side Rails Side Rails x2, Bed position Low and Locked. Fall Precautions: Yellow Socks Yellow Gown Door Sign Patient Fall Education Report given to NIKOLAY Rabago.
--- NOTE | 2020-04-25 19:10 | NUR ---
NURSE NOTES: Received report from NIKOLAY Lopez. Pt is A&Ox4 in bed. Call light within reach, side rails up x3, bed locked and in lowest position. Pt is NPO after midnight due to a redo of laminectomy and discectomy, consent is signed. Will continue to monitor.
[2020-04-25 20:00] VITALS: BP 110/79
[2020-04-25] MEDS: Atorvastatin 20mg tab ORAL SCH (20:09)
[2020-04-25] MEDS: Tamsulosin 0.4mg cap ORAL SCH (20:09)
[2020-04-25] MEDS: Levemir Flexpen SUBQ SCH (20:24)
[2020-04-26] VITALS (12 sets, daily range): BP systolic 117–160; BP diastolic 63–80
[2020-04-26] MEDS: Dronabinol 2.5mg Cap ORAL SCH ×3 (00:17→17:45)
[2020-04-26] MEDS: oxyCODONE 5mg IR tab ORAL PRN ×3 (00:18→15:37)
[2020-04-26] MEDS: Hydromorphone 0.5mg/0.5ml inj IVP PRN ×3 (05:59→18:48)
[2020-04-26] MEDS: GlipiZIDE 5mg tab ORAL SCH ×2 (05:59→15:36)
[2020-04-26] MEDS: NovoLOG Insulin Flexpen SUBQ SCH ×2 (06:06→11:19)
--- NOTE | 2020-04-26 07:01 | NUR ---
NURSE HAND-OFF: Important Events on Shift: Pain management, prepared for surgery Patient Status: calm Diet: NPO Pending Orders: Pending Results/Labs: Pending MD notification: Latest Vital Signs: Temperature 97.7 , Pulse 75 , B/P 124 /74 , Respiratory Rate 17 , O2 SAT 99 , Nasal Cannula, O2 Flow Rate 3 . Vital Sign Comment: VSS Latest Alberts Fall Score: 35 Fall Risk: Safety Measures: Call light Within Reach, Bed Alarm Zone 2, Side Rails Side Rails x2, Bed position Low and Locked. Fall Precautions: Yellow Socks Yellow Gown Door Sign Patient Fall Education Report given to NIKOLAY Gillespie.
--- NOTE | 2020-04-26 07:40 | NUR ---
NURSE NOTES: RN received report from Navneet and patient in bed, aao X4. Patient does not show s/s of respiratory distress on RA. IV is intact, dry, clean, patent and asymptomatic. NPO since midnight. Bed in lowest position and locked, bed alarm on. Call light within reach and patient able to make needs known. Side rails up X2. Will continue to monitor.
--- NOTE | 2020-04-26 08:05 | NUR ---
RD ASSESSMENT & RECOMMENDATIONS SEE CARE ACTIVITY FOR COMPLETE ASSESSMENT DAILY ESTIMATED NEEDS: Needs based on Surgery, DM/ 84kg 25-30 kcals/kg 2355-5243 total kcals 1-1.5 g protein/kg 84-126 g total protein 25-30 mL/kg 6119-4455 total fluid mLs NUTRITION DIAGNOSIS: Altered nutrition related lab values R/T h/o DM as evidenced by episodes of hyperglycemia (184 172) and hypoglycemia (68, 69) CURRENT DIET:CCHO MED -> NPO for procedure PO DIET RECOMMENDATIONS: Initiate diet per surgeon post op -> CCHO MEDIUM ADDITIONAL RECOMMENDATIONS: * Calibrated bedscale wt * Monitor and record BMs in EMR: pt on colace, no record of BM since adm * Rec added D5 while pt NPO to prevent hypoglycemia * W/ diet order, add 1 carb/high prot snacks BID in b/w meals * Glucerna x 1 w/ fair intake * Check CMP: not done since adm
[2020-04-26] MEDS: Docusate 100mg cap ORAL SCH ×2 (09:00→17:46)
[2020-04-26] MEDS: Lisinopril 20mg tab ORAL SCH (09:00)
--- NOTE | 2020-04-26 09:00 | NUR ---
PT NOTE Patient scheduled for surgery this a.m. Will wait for MD resume order for PT following procedure. Discussed with Jose Miguel LINK.
--- NOTE | 2020-04-26 09:10 | NUR ---
NURSE NOTES: Santino transported the patient on a gurney to OR. Patient's vitals stable, verbally responsive.
[2020-04-26] MEDS ORDERED: Vancomycin 1gm vial IVPB ONE (09:30)
[2020-04-26] MEDS ORDERED: Thrombin 5000 units TOPIC ONE (09:30)
[2020-04-26] MEDS ORDERED: Gelfoam Size TOPIC ONE (09:30)
[2020-04-26] MEDS ORDERED: EPINEPHrine 1mg/1ml Amp ONE (09:30)
[2020-04-26] MEDS ORDERED: Bacitracin 50000 Units Vial ONE (09:31)
[2020-04-26] MEDS ORDERED: Bupivacaine 0.5% Inj 30 ml vial INJ ONE (09:31)
[2020-04-26] MEDS ORDERED: fentaNYL 100 mcg/2 mL IV ONE ×2 (09:38→11:14)
[2020-04-26] MEDS ORDERED: Lidocaine 1% MPF 10mg/ml 5ml ONE (09:41)
[2020-04-26] MEDS ORDERED: Rocuronium Bromide 50mg/5ml Inj IV ONE ×2 (09:41→11:08)
--- NOTE | 2020-04-26 10:07 | Pre-Procedure Note/Attestation ---
Pre-Procedure Note/Attestation Complete Prior to Procedure Procedure Narrative: L23 L Lami/discectomy- redo Indications for Procedure Pre-Operative Diagnosis: sp l3-s1 fusion, l23 hnp and discopathy Attestation I attest that I discussed the nature of the procedure; its benefits; risks and complications; and alternatives (and the risks and benefits of such alternatives), prior to the procedure, with the patient (or the patient's legal sales representative [employer]). I attest that, if there was a reasonable possibility of needing a blood transfusion, the patient (or the patient's legal sales representative [employer]) was given the [facility] standardized written summary, pursuant to the Wilfredo Nicole Blood Safety Act ([place] Health and Safety Code # 1645, as amended). I attest that I re-evaluated the patient just prior to the surgery and that there has been no change in the patient's H&P, except as documented below: Tacho Anguiano MD Apr 26, 2020 10:07
--- NOTE | 2020-04-26 10:10 | Brief Operative Note ---
Immediate Post Operative Note Operative Note Pre-op Diagnosis: SP L23 PSF, R laminectomy retained fragment ands residual stenosis L side Procedure: Facetectomy and redo laminectomy L23 L side Post-op Diagnosis: same as pre-op Findings: consistent w/pre-op dx studies Surgeon: bonny Equipment Installer: sanju CHAUDHRY Anesthesiologist: Víctor Anesthesia: general Specimen: none Complications: none Condition: stable Fluids: 550 Estimated Blood Loss: minimal - 30 Drains: none Implant(s) used?: No Tacho Anguiano MD Apr 26, 2020 10:10
--- NOTE | 2020-04-26 10:57 | Anethesia Preoperative Eval ---
Anesthesia Pre-op PMH/ROS General Date of Evaluation: Apr 26, 2020 Time of Evaluation: 09:50 Anesthesiologist: Víctor ASA Score: ASA 3 Mallampati Score Class I : Soft palate, uvula, fauces, pillars visible Class II: Soft palate, uvula, fauces visible Class III: Soft palate, base of uvula visible Class IV: Only hard plate visible Mallampati Classification: Class II Surgeon: Annmarie Diagnosis: Lumbar radiculopathy Surgical Procedure: Laminectomy Anesthesia History: none Family History: no anesthesia problems Allergies: Coded Allergies: CODEINE (Verified Allergy, Unknown, 01/25/11) WARFARIN (Verified Allergy, Unknown, 10/22/08) Uncoded Allergies: CODEINE/WARFARIN (Allergy, Intermediate, STOMACH ACHE, 10/13/12) Medications: see eMAR Patient NPO?: Yes Past Medical History Cardiovascular: Reports: HTN; Denies: CAD, PR, valve dz, arrhythmia, other Pulmonary: Denies: asthma, COPD, KHARI, other Gastrointestinal/Genitourinary: Reports: GERD, other - s/p partial cletomy; Denies: CRI, ESRD Neurologic/Psychiatric: Reports: depression/anxiety, other - chronic pain; Denies: dementia, CVA, TIA Endocrine: Reports: DM; Denies: hypothyroidism, steroids, other HEENT: Reports: cataract (L), cataract (R) - s/p Sx Hematology/Immune: Reports: anemia - 2 units trasfused; Denies: DVT, bleeding disorder, other Musculoskeletal/Integumentary: Reports: OA; Denies: RA, DJD, DDD, edema, other PMH Narrative: as above PSxH Narrative: see H&P Anesthesia Pre-op Phys. Exam Physician Exam Last Vital Signs Date Time Temp Pulse Resp B/P (MAP) Pulse Ox O2 Delivery O2 Flow Rate FiO2 04/26/20 09:00 Room Air 04/26/20 09:00 73 125/64 04/26/20 08:00 98.0 20 97 04/21/20 19:30 21 04/19/20 14:50 3 Constitutional: NAD Neurologic: CN 2-12 intact Cardiovascular: RRR, no M/R/G Respiratory: CTA Gastrointestinal: S/NT/ND Airway Exam Mallampati Score: Class II MO: limited Neck: stiff ROM: limited Teeth: missing Dentures: no upper, no lower Anesthesia Pre-op A/P Labs see chart Risk Assessment & Plan Assessment: ASA 3 Plan: GA with ETT, prone position, neuromonitoring Status Change Before Surgery: No Pre-Antibiotics Drug: Ancef 1gr Given Within 1 Hr of Incision: Yes Time Given: 10:45 Kade Renee MD Apr 26, 2020 10:57
[2020-04-26] MEDS ORDERED: Midazolam 2mg/2ml Inj IVP PRN (11:00)
[2020-04-26] MEDS ORDERED: Acetaminophen (Non formulary) 100 ML IV ONE (11:00)
[2020-04-26] MEDS ORDERED: Hydromorphone 0.5mg/0.5ml inj IVP PRN (11:00)
[2020-04-26] MEDS ORDERED: LR 1000ml 1,000 ML IVLG SCH (11:00)
[2020-04-26] MEDS ORDERED: Glycopyrrolate 0.2mg/ml 1ml Vial ONE (11:03)
[2020-04-26] MEDS ORDERED: ePHEDrine 50mg/ml Inj ONE (11:03)
[2020-04-26] MEDS ORDERED: Sodium Chloride 10ml vial INJ ONE (11:03)
--- NOTE | 2020-04-26 12:18 | Immediate Post-Op Evaluation ---
Immediate Post-Op Evalulation Immediate Post-Op Evalulation Procedure: Revision of L2-L3 laminotomy with decompression Date of Evaluation: Apr 26, 2020 Time of Evaluation: 12:16 IV Fluids: 600 Blood Products: none Estimated Blood Loss: 50 Urinary Output: NONE Blood Pressure Systolic: 136 Blood Pressure Diastolic: 65 Pulse Rate: 76 Respiratory Rate: 20 O2 Sat by Pulse Oximetry: 99 Temperature (Fahrenheit): 97.6 Pain Score (1-10): 2 Nausea: No Vomiting: No Complications none Patient Status: reacts, patent, extubated, none Hydration Status: adequate Kade Renee MD Apr 26, 2020 12:18
[2020-04-26 12:44] LABS: HEMATOCRIT 26.2 % (42.0-52.0); HEMOGLOBIN 8.4 G/DL (14.2-18.0); MEAN CORPUSCULAR VOLUME 112 FL (80-99); PLATELET COUNT 392 K/UL (150-450); RED BLOOD COUNT 2.34 M/UL (4.70-6.10); WHITE BLOOD COUNT 5.2 K/UL (4.8-10.8)
[2020-04-26 12:45] LABS: ANION GAP 7 mmol/L (5-15); BLOOD UREA NITROGEN 16 mg/dL (7-18); CALCIUM 8.7 MG/DL (8.5-10.1); CARBON DIOXIDE 24 MMOL/L (21-32); CHLORIDE 108 MMOL/L (98-107); CREATININE 1.1 MG/DL (0.55-1.30); POTASSIUM 3.7 MMOL/L (3.5-5.1); SODIUM 139 MMOL/L (136-145)
--- NOTE | 2020-04-26 13:13 | NUR ---
CASE MANAGEMENT:REVIEW 04/26/20 SI: POD#7.....S/P REVISION OF LUMBAR FUSION POD #0...FACETECTOMY AND REDO LAMINECTOMY L23 SIDE 98.0 73 20 125/64 97% ON RA H/H-8.4/26.2 IS: IVF@100/HR NORVASC PO Q12 SYNTHROID PO QD LIPITOR PO QHS LEVEMIR SQ QHS GLIPIZIDE PO BID OXYCODONE PO Q3HRS PRN LISINOPRIL PO QD FLOMAX PO QHS PROTONIX PO QHS : MED/SURG STATUS DCP: REHAB UNIT PLAN: [facility]
--- NOTE | 2020-04-26 14:00 | NUR ---
5 Addendum: 04/26/20 at 1408 by Jose Miguel Lucia RN Documented in error.
--- NOTE | 2020-04-26 14:10 | NUR ---
NURSE NOTES: RN received report from Charissa and patient on bed aaoX4. His vitals are stable except for slight hypertension. RN contacted pharmacist Vielka and was told to continue to hold BP since the pain medication will bring down the BP. Bed in lowest position and locked, bed alarm on. Call light within reach. Ice pack is placed on the back where the dressing is. IV intact, clean, dry, paten and asymptomatic. No s/s of respiratory distress noted. Patient c/o pain level of 9. Will administer the pain medication.
--- NOTE | 2020-04-26 14:14 | Operative Note - Dictated ---
DATE OF OPERATION: 04/26/2020 SURGEON: Tacho Anguiano MD. PUBLIC HEALTH EPIDEMIOLOGIST: Mark Trejo PA-C. ANESTHESIA: Kade Renee MD. ANESTHESIA TYPE: General endotracheal anesthesia. PREOPERATIVE DIAGNOSES: 1. Status post L2 through S1 fusion. 2. Status post L2-L3 right-sided facetectomy, diskectomy, decompression. 3. Residual stenosis, left side L2-L3. OPERATION PERFORMED: 1. Left-sided redo laminectomy, L2. 2. Redo laminectomy, left side, superior L3. 3. Decompression of L2-L3 level. ESTIMATED BLOOD LOSS: 50 mL. COMPLICATIONS: None. FINDINGS: Severe stenosis, significant adhesions where the disk extrusion had adhered to the under surface of the dural sac, making it impossible to perform diskectomy safely through a posterior approach. INDICATIONS: The patient is a very pleasant gentleman with fairly significant spinal stenosis, L2- L3, previously had undergone right-sided attempted TLIF. However, due to severe calcifications and severe discogenic collapse, this could not be safely approached. A right-sided decompression was performed. Postoperatively, patient had persistence of weakness in lower extremities. Unclear if this was due to the chronic nature of his stenosis versus residual stenosis. An MRI postoperatively was performed demonstrating persistent left-sided stenosis. Insofar as the plan was to hold off on the TLIF procedure, we elected to bring the patient back for a redo dcompression, left side L2-L3. RISKS NOTE: The patient was explained in detail risks and benefits of surgery to include but not be limited to those of bleeding, infection, damage to nerves, vessels, tendons, anesthetic risk, allergic reaction, aspiration, and possibly . The patient understood and wished to proceed. OPERATIVE PROCEDURE IN DETAIL: The patient was taken to the operating suite. After general endotracheal anesthesia was obtained, he was turned prone onto a Richy frame. The back was prepped and draped in usual sterile fashion. The Dermabond was removed from the incision prior to prepping. The incision was reopened in the proximal one-half. The sutures were all removed. Blunt dissection was carried out. Subperiosteal dissection on the left side had already been performed facilitating the decompression on the left side. Self-retaining retractors were put in place. Care being taken not to cause any dural injury on the right side as the prior laminectomy was performed. At this point, the operating microscope was brought in place and a high-speed drill was used to perform a complete left-sided laminectomy of L2 and superior one-half of L3. Ligamentum flavum was removed in a piecemeal fashion. The partial facetectomy was performed. Dissection was carried out using standard technique and using curved curettes, Kerrison punches. Dissection was carried out all the way to the lateral margin of the dural sac. Multiple attempts were made to reflect the dural sac off of the large disk extrusion. However, disc was adamantly adhered to the ventral portion of the dura and it was felt that an adequate enough posterior decompression has been performed and the risk of developing an anterior CSF leak was of concern and therefore the diskectomy portion of this operation was aborted. Adequate posterolateral decompression was achieved. The copious irrigation was performed. The local autograft bone was then repacked into the facet defect that was developed at the prior operation to bone graft that defect. The hardware did not require manipulation. At this point, the decision was made to close. Meticulous hemostasis was obtained. Sponge and needle counts were correct. Fascia was repaired using #1 Vicryl, subcutaneous closure using 2-0 Vicryl and a running Monocryl, Dermabond was then applied to the entire incision. Sterile dressing was applied. At the end of this procedure, the patient was prepared for extubation. Tacho Anguiano M.D. DR: Sanjay JOB#: [id number] CC: SRAVANI
--- NOTE | 2020-04-26 14:21 | Cardiology Progress Note ---
Assessment/Plan Status Narrative 1. HTN 2. DM 3. LS spine discogenic Dz, s/p LS spine surgery 4. Hypercholesterolemia 5. Anemia due to blood loss - 6. Post op pain S/P second spine surgery 04/26/20 Assessment/Plan Monitor BS Insulin PRN Monitor BP Ambulate Pain management PT/OT DVT PX IV iron QD May need transfusion if Hgb drops DC as per Dr. 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 w.o. complications Objective Last 24 Hour Vital Signs Date Time Temp Pulse Resp B/P (MAP) Pulse Ox O2 Delivery O2 Flow Rate FiO2 04/26/20 13:15 97.6 72 15 141/69 100 Nasal Cannula 3 04/26/20 13:00 78 18 135/75 100 Nasal Cannula 3 04/26/20 12:45 72 15 143/68 100 Simple Mask 6 04/26/20 12:30 74 16 148/72 100 Simple Mask 6 04/26/20 12:25 76 18 140/70 100 Simple Mask 6 04/26/20 12:20 75 15 136/65 100 Simple Mask 6 04/26/20 12:20 97.9 04/26/20 12:18 76 20 99 04/26/20 12:10 98.2 86 22 160/63 100 Simple Mask 6 04/26/20 09:00 Room Air 04/26/20 09:00 73 125/64 04/26/20 09:00 125/64 04/26/20 08:00 98.0 73 20 125/64 (84) 97 04/26/20 04:00 97.7 75 17 124/74 (91) 99 04/26/20 00:00 98.7 77 18 127/80 (96) 97 04/25/20 21:00 Room Air 04/25/20 20:26 81 110/79 04/25/20 20:00 98.4 81 18 110/79 (89) 98 04/25/20 18:04 98.2 04/25/20 16:00 98.1 86 18 110/74 (86) 97 Cardiovascular: normal rate, regular rhythm, no gallop/murmur Respiratory/Chest: lungs clear Abdomen: normal bowel sounds, non tender, soft, no organomegaly, no mass Extremities: non-tender, normal inspection, no calf tenderness, no swelling Intake and Output 04/25/20 04/26/20 19:00 07:00 Intake Total 960 ml Output Total 600 ml 750 ml Balance 360 ml -750 ml Intake Oral 960 ml Output Urine Total 600 ml 750 ml # Voids 2 Laboratory Tests Test 04/26/20 12:27 White Blood Count 5.2 K/UL (4.8-10.8) Red Blood Count 2.34 M/UL (4.70-6.10) L Hemoglobin 8.4 G/DL (14.2-18.0) L Hematocrit 26.2 % (42.0-52.0) L Mean Corpuscular Volume 112 FL (80-99) H Mean Corpuscular Hemoglobin 35.9 PG (27.0-31.0) H Mean Corpuscular Hemoglobin Concent 32.1 G/DL (32.0-36.0) Red Cell Distribution Width 16.0 % (11.6-14.8) H Platelet Count 392 K/UL (150-450) Mean Platelet Volume 6.4 FL (6.5-10.1) L Neutrophils (%) (Auto) % (45.0-75.0) Lymphocytes (%) (Auto) % (20.0-45.0) Monocytes (%) (Auto) % (1.0-10.0) Eosinophils (%) (Auto) % (0.0-3.0) Basophils (%) (Auto) % (0.0-2.0) Differential Total Cells Counted 100 Neutrophils % (Manual) 57 % (45-75) Lymphocytes % (Manual) 33 % (20-45) Monocytes % (Manual) 7 % (1-10) Eosinophils % (Manual) 3 % (0-3) Basophils % (Manual) 0 % (0-2) Band Neutrophils 0 % (0-8) Platelet Estimate Adequate Platelet Morphology Normal Anisocytosis 1+ Macrocytosis 1+ Sodium Level 139 MMOL/L (136-145) Potassium Level 3.7 MMOL/L (3.5-5.1) Chloride Level 108 MMOL/L (98-107) H Carbon Dioxide Level 24 MMOL/L (21-32) Anion Gap 7 mmol/L (5-15) Blood Urea Nitrogen 16 mg/dL (7-18) Creatinine 1.1 MG/DL (0.55-1.30) Estimat Glomerular Filtration Rate > 60 mL/min (>60) Glucose Level 72 MG/DL (74-106) L Calcium Level 8.7 MG/DL (8.5-10.1) Shemar Garcia MD Apr 26, 2020 14:21
--- NOTE | 2020-04-26 14:43 | NUR ---
INSURANCE CLINICALS/REVIEW FAXED TO [facility] #[phone] FAX# [phone]
--- NOTE | 2020-04-26 15:31 | NUR ---
NURSE NOTES: Patient c/o pain level of 9. RN administered oxycodone. Will continue to monitor.
[2020-04-26] MEDS: D5 1/2NS 1,000 ML IV SCH (15:36)
--- NOTE | 2020-04-26 17:00 | NUR ---
NURSE NOTES: Patient's BS increased to 86 after patient drank two cups of juice and ate dinner. Will continue to monitor.
--- NOTE | 2020-04-26 17:16 | NUR ---
NURSE NOTES: Patient's blood sugar is low 65. Trimble juice was given. Patient wants to have regular texture meals and skip the intermediate textures. Patient aaoX4, swallows fine. RN changed the diet to regular texture CCHO medium. Will continue to monitor.
[2020-04-26] MEDS ORDERED: oxyCODONE 5mg IR tab ORAL PRN (18:45)
--- NOTE | 2020-04-26 19:44 | NUR ---
NURSE NOTES: RN made Dr. Garcia aware of patient's hypoglycemic episode. RN received the order to hold Levemir for tonight and feed the patient. RN endorsed to the next shift nurse Torres.
--- NOTE | 2020-04-26 19:45 | NUR ---
NURSE NOTES: Received report from Jose Miguel LINK. Patient is awake, alert and oriented x4. On room air, breathing is even and unlabored. No complains of pain or distress noted at the moment. IV left UA intact and patent with no bleeding noted. IVF running as ordered. Will hold Levimir for tonight as ordered. Will give snacks at night. Bed low and locked. Call light within reach. Will continue to monitor
--- NOTE | 2020-04-26 19:56 | Pain Management Progress Note ---
Allergies: Coded Allergies: CODEINE (Verified Allergy, Unknown, 01/25/11) WARFARIN (Verified Allergy, Unknown, 10/22/08) Uncoded Allergies: CODEINE/WARFARIN (Allergy, Intermediate, STOMACH ACHE, 10/13/12) Vitals Vital Signs Date Time Temp Pulse Resp B/P (MAP) Pulse Ox O2 Delivery O2 Flow Rate FiO2 04/26/20 19:18 98.2 04/26/20 16:00 98.2 83 20 117/72 (87) 100 04/26/20 13:15 97.6 72 15 141/69 100 Nasal Cannula 3 04/26/20 13:00 78 18 135/75 100 Nasal Cannula 3 04/26/20 12:45 72 15 143/68 100 Simple Mask 6 04/26/20 12:30 74 16 148/72 100 Simple Mask 6 04/26/20 12:25 76 18 140/70 100 Simple Mask 6 04/26/20 12:20 75 15 136/65 100 Simple Mask 6 04/26/20 12:20 97.9 04/26/20 12:18 76 20 99 04/26/20 12:10 98.2 86 22 160/63 100 Simple Mask 6 Medications Current Medications Acetaminophen (Tylenol) 650 mg Q4H PRN ORAL Mild Pain (Pain Scale 1-3); Start 04/26/20 at 18:45; Stop 05/26/20 at 18:44 Acetaminophen (Tylenol) 650 mg Q4H PRN ORAL Temp >100.5; Start 04/26/20 at 18:45; Stop 05/26/20 at 18:44 Acetaminophen (Tylenol) 650 mg Q4H PRN ORAL headache Last administered on 04/25at 09:29; Start 04/19/20 at 13:00; Stop 05/19/20 at 12:59 Al Hydroxide/Mg Hydroxide (Mylanta) 30 ml Q6H PRN ORAL gerd; Start 04/19/20 at 19:00; Stop 05/19/20 at 18:59 Amlodipine Besylate (Norvasc) 5 mg Q12HR ORAL Last administered on 04/25/20at 09:28; Start 04/24/20 at 21:00; Stop 05/20/20 at 20:59 Atorvastatin Calcium (Lipitor) 10 mg BEDTIME ORAL Last administered on 04/25/20at 20:09; Start 04/20/20 at 21:00; Stop 07/19/20 at 20:59 Dextrose/Sodium Chloride 1,000 ml @ 100 mls/hr Q10H IV Last administered on 04/26/20at 15:36; Start 04/26/20 at 15:00; Stop 05/26/20 at 14:59 Diphenhydramine HCl (Benadryl) 25 mg Q6H PRN ORAL Itching; Start 04/19/20 at 19:00; Stop 05/19/20 at 18:59 Docusate Sodium (Colace) 100 mg TWICE A DAY ORAL Last administered on 04/26/20 at 17:46; Start 04/26/20 at 18:00; Stop 05/26/20 at 17:59 Dronabinol (Marinol) 2.5 mg Q8H ORAL Last administered on 04/26/20at 17:45; Start 04/20/20 at 17:00; Stop 07/18/20 at 20:59 Glipizide (Glucotrol) 10 mg BIAC ORAL Last administered on 04/26/20at 15:36; Start 04/20/20 at 16:30; Stop 05/20/20 at 16:29 Hydromorphone HCl (Dilaudid) 0.5 mg Q2H PRN IVP Severe Pain (Pain Scale 7-10) Last administered on 04/26/20at 18:48; Start 04/26/20 at 18:45; Stop 05/03/20 at 18:44 Insulin Detemir (Levemir) 20 units BEDTIME SUBQ Last administered on 04/25/20at 20:24; Start 04/20/20 at 21:00; Stop 07/19/20 at 20:59 Iron Sucrose 100 mg/Sodium Chloride 60 ml @ 240 mls/hr QHS IVPB ; Start 04/26/20 at 21:00; Stop 04/30/20 at 21:14 Levothyroxine Sodium (Synthroid) 150 mcg DAILY@0630 ORAL Last administered on 04/26/20at 05:58; Start 04/21/20 at 06:30; Stop 05/21/20 at 06:29 Lisinopril (PriniviL) 40 mg DAILY ORAL Last administered on 04/25/20at 09:28; Start 04/20/20 at 11:15; Stop 05/20/20 at 11:14 Mineral Oil (Mineral Oil) 30 ml DAILYPRN PRN ORAL Constipation Last administered on 04/24/20at 14:58; Start 04/22/20 at 16:15; Stop 05/22/20 at 16:14 Ondansetron HCl (Zofran) 4 mg Q6H PRN IVP Nausea & Vomiting; Start 04/19/20 at 13:00; Stop 05/19/20 at 12:59 Oxycodone HCl (Roxicodone) 10 mg Q3H PRN ORAL Moderate Pain (Pain Scale 4-6); Start 04/26/20 at 18:45; Stop 05/03/20 at 18:44 Pantoprazole (Protonix) 40 mg BEDTIME ORAL Last administered on 04/25/20at 20:08; Start 04/19/20 at 21:00; Stop 05/19/20 at 20:59 Tamsulosin HCl (Flomax) 0.4 mg BEDTIME ORAL Last administered on 04/25/20at 20:09; Start 04/19/20 at 21:00; Stop 05/19/20 at 20:59 Temazepam (Restoril) 15 mg HSPRN PRN ORAL Insomnia; Start 04/26/20 at 11:30; Stop 05/03/20 at 11:29 Laboratory Laboratory Tests 04/26/20 12:27: White Blood Count 5.2, Red Blood Count 2.34L, Hemoglobin 8.4L, Hematocrit 26.2L, Mean Corpuscular Volume 112H, Mean Corpuscular Hemoglobin 35.9H, Mean Corpuscular Hemoglobin Concent 32.1, Red Cell Distribution Width 16.0H, Platelet Count 392, Mean Platelet Volume 6.4L, Neutrophils (%) (Auto) , Lymphocytes (%) (Auto) , Monocytes (%) (Auto) , Eosinophils (%) (Auto) , Basophils (%) (Auto) , Differential Total Cells Counted 100, Neutrophils % (Manual) 57, Lymphocytes % (Manual) 33, Monocytes % (Manual) 7, Eosinophils % (Manual) 3, Basophils % (Manual) 0, Band Neutrophils 0, Platelet Estimate Adequate, Platelet Morphology Normal, Anisocytosis 1+, Macrocytosis 1+, Sodium Level 139, Potassium Level 3.7, Chloride Level 108H, Carbon Dioxide Level 24, Anion Gap 7, Blood Urea Nitrogen 16, Creatinine 1.1, Estimat Glomerular Filtration Rate > 60, Glucose Level 72L, Calcium Level 8.7 Plan: Pt seen. Discussed with spine srgn Dr. Anguiano. Pain level 5 / 10 on the visual-analog pain scale after revision surgery today for leg weakness. I spoke with hospital pharmacist Vielka to review and renew narcotic orders. Marinol working well. No evidence for oversedation. No SOB/CP. Marinol frequency of q8 hours tolerated well; will continue current dosing. MAR medication list reviewed. Will alternate po prn oxycodone-IR with prn IV Dilaudid while pt remains in the hospital. Rx for Percocet #50 provided last week for outpatient pain medication usage. Dr Anguiano requesting pt to txfr to [facility]. Navneet Huitron MD Apr 26, 2020 19:56
--- NOTE | 2020-04-26 20:05 | NUR ---
NURSE HAND-OFF: Important Events on Shift:hypoglycemia, pain management Patient Status: stable Diet: CCHO medium liquid Pending Orders: feed the patient tonight, hold Levemir tonight Pending Results/Labs:n/a Pending MD notification:n/a Latest Vital Signs: Temperature 98.2 , Pulse 83 , B/P 117 /72 , Respiratory Rate 20 , O2 SAT 100 , Nasal Cannula, O2 Flow Rate 3 . Vital Sign Comment: stable Latest Alberts Fall Score: 35 Fall Risk: Safety Measures: Call light Within Reach, Bed Alarm Zone 2, Side Rails Side Rails x2, Bed position Low and Locked. Fall Precautions: Yellow Socks Yellow Gown Door Sign Patient Fall Education Report given to Brian.
[2020-04-26] MEDS: Tamsulosin 0.4mg cap ORAL SCH (20:41)
[2020-04-26] MEDS: Atorvastatin 20mg tab ORAL SCH (20:42)
[2020-04-26] MEDS: Levemir Flexpen SUBQ SCH (20:46)
--- NOTE | 2020-04-26 21:00 | NUR ---
NURSE NOTES: Per MD's order, will hold insulin Levemir only for tonight. BS 132. Patient stable
[2020-04-26] MEDS: Iron Sucrose 100 MG in NS 55 ML IVPB SCH (21:25)
[2020-04-27] VITALS: BP 163/96
[2020-04-27] MEDS: D5 1/2NS 1,000 ML IV SCH ×3 (00:27→21:31)
[2020-04-27] MEDS: Dronabinol 2.5mg Cap ORAL SCH ×3 (00:28→17:08)
[2020-04-27 04:00] VITALS: BP 162/87
[2020-04-27] MEDS: GlipiZIDE 5mg tab ORAL SCH ×2 (05:59→17:08)
[2020-04-27 06:11] LABS: HEMATOCRIT 27.5 % (42.0-52.0); HEMOGLOBIN 9.1 G/DL (14.2-18.0); MEAN CORPUSCULAR VOLUME 111 FL (80-99); PLATELET COUNT 452 K/UL (150-450); RED BLOOD COUNT 2.48 M/UL (4.70-6.10); RED CELL DISTRIBUTION WIDTH 15.7 % (11.6-14.8)
--- NOTE | 2020-04-27 06:59 | NUR ---
NURSE HAND-OFF: Important Events on Shift: BS management, BP management, pain management, Venofer IV Patient Status: Stable Diet: CCHO (medium) Pending Orders: [] Pending Results/Labs:[] Pending MD notification:[] Latest Vital Signs: Temperature 98.8 , Pulse 82 , B/P 162 /87 , Respiratory Rate 18 , O2 SAT 99 , Nasal Cannula, O2 Flow Rate 3 . Vital Sign Comment: VS stable Latest Albetrs Fall Score: 35 Fall Risk: Medium Risk Safety Measures: Call light Within Reach, Bed Alarm Zone 2, Side Rails Side Rails x2, Bed position Low and Locked. Fall Precautions: Yellow Socks Yellow Gown Door Sign Patient Fall Education Report will be given to Blaire LINK.
--- NOTE | 2020-04-27 07:55 | NUR ---
NURSE NOTES: Patient alert x4; on room air, no sing of distress and shortness of breath; no sing of chest pain; IV Left-Upper arm D51/2NS 100cc running; SCD on; Urinal within reach; side rails up x2, breaks engaged, bed at lowest position, bed alarm on; call light within reach; will monitor blood sugar, pain management and carry out the plan of care.
[2020-04-27 08:00] VITALS: BP 145/64
[2020-04-27] MEDS ORDERED: Sterile Water Irrig 1000ml IRRIG ONE (08:00)
[2020-04-27] MEDS ORDERED: propofoL 1,000mg/100ml IV ONE (08:00)
[2020-04-27] MEDS ORDERED: LR 1000ml ONE (08:00)
[2020-04-27] MEDS ORDERED: Succinylcholine 20mg/ml 10ml vial ONE (08:00)
[2020-04-27] MEDS ORDERED: NS Irrig 1000ml ONE (08:00)
[2020-04-27] MEDS ORDERED: Neostigmine 1mg/ml 10ml Inj ONE (08:00)
--- NOTE | 2020-04-27 08:07 | NUR ---
CASE MANAGEMENT:REVIEW 04/27/20 SI: POD#8.....S/P REVISION OF LUMBAR FUSION POD #1...FACETECTOMY AND REDO LAMINECTOMY L23 SIDE 98.8 82 18 162/87 99% ON RA H/H-9.04/06.5 IS: IVF@100/HR IV VENOFER QHS NORVASC PO Q12 SYNTHROID PO QD LIPITOR PO QHS LEVEMIR SQ QHS GLIPIZIDE PO BID OXYCODONE PO Q3HRS PRN IV DILAUDID Q2HRS PRN LISINOPRIL PO QD FLOMAX PO QHS PROTONIX PO QHS : MED/SURG STATUS DCP: REHAB UNIT PLAN: [facility]
[2020-04-27] MEDS: Docusate 100mg cap ORAL SCH ×2 (08:38→17:08)
[2020-04-27] MEDS: Lisinopril 20mg tab ORAL SCH (08:39)
[2020-04-27] MEDS: Hydromorphone 0.5mg/0.5ml inj IVP PRN (08:40)
--- NOTE | 2020-04-27 08:46 | NUR ---
NURSE NOTES: Patient had Temp 101.5, patient doesn't want to take Tylenol; the risk and benefits explained to patient; will keep monitoring.
--- NOTE | 2020-04-27 11:00 | NUR ---
NURSE NOTES: MD Anguiano wants to find out the status of this patient; I updated MD Anguiano that patient had fever 101 and patient refused to take Tylenol; also patient been hypertensive and patient doesn't have PRN BP med. No order given;
--- NOTE | 2020-04-27 11:00 | NUR ---
PT NOTE Attempted to see patient for PT treatment. Patient declining to participate with PT at this time, states he has been unable to get any rest. Giovanna LINK notified, will follow up in p.m.
[2020-04-27 12:00] VITALS: BP 133/68
--- NOTE | 2020-04-27 12:21 | NUR ---
NURSE NOTES: Patient temperature 100.2; Tylenol 640mg given; will keep monitoring.
--- NOTE | 2020-04-27 13:40 | NUR ---
PT RE-EVALUATION NOTE Patient seen for re-evaluation s/p second lumbar surgery. Patient presents with impaired functional mobility and pain s/p lumbar surgery. Patient instructed in log roll technique for in/OOB and in back precautions. Patient required SBA for bed mobility and CGA for transfers with FWW. Patient able to ambulate 80 ft with CGA and FWW, slowed pace and guarded. Patient will benefit from skilled inpatient PT intervention to improve postural stability for improved level of functional mobility, safety and compliance with back precautions. Recommend discharge to ARU for continued rehab once medically cleared by MD. Recommend raised toilet seat for home, patient states he has a FWW at home. Addendum: 04/27/20 at 1413 by SHY CISSE PT Amended: Links added.
--- NOTE | 2020-04-27 13:42 | Pain Management Progress Note ---
Allergies: Coded Allergies: CODEINE (Verified Allergy, Unknown, 01/25/11) WARFARIN (Verified Allergy, Unknown, 10/22/08) Uncoded Allergies: CODEINE/WARFARIN (Allergy, Intermediate, STOMACH ACHE, 10/13/12) Vitals Vital Signs Date Time Temp Pulse Resp B/P (MAP) Pulse Ox O2 Delivery O2 Flow Rate FiO2 04/27/20 12:27 100.2 04/27/20 12:00 100.2 86 20 133/68 (89) 95 04/27/20 09:10 99.0 04/27/20 09:00 Room Air 04/27/20 08:39 89 145/64 04/27/20 08:39 145/64 04/27/20 08:00 101.0 89 20 145/64 (91) 98 Medications Current Medications Acetaminophen (Tylenol) 650 mg Q4H PRN ORAL Mild Pain (Pain Scale 1-3); Start 04/26/20 at 18:45; Stop 05/26/20 at 18:44 Acetaminophen (Tylenol) 650 mg Q4H PRN ORAL Temp >100.5; Start 04/26/20 at 18:45; Stop 05/26/20 at 18:44 Acetaminophen (Tylenol) 650 mg Q4H PRN ORAL headache Last administered on 04/27/20at 11:57; Start 04/19/20 at 13:00; Stop 05/19/20 at 12:59 Al Hydroxide/Mg Hydroxide (Mylanta) 30 ml Q6H PRN ORAL gerd; Start 04/19/20 at 19:00; Stop 05/19/20 at 18:59 Amlodipine Besylate (Norvasc) 5 mg Q12HR ORAL Last administered on 04/27/20at 08:39; Start 04/24/20 at 21:00; Stop 05/20/20 at 20:59 Atorvastatin Calcium (Lipitor) 10 mg BEDTIME ORAL Last administered on 04/26/20at 20:42; Start 04/20/20 at 21:00; Stop 07/19/20 at 20:59 Dextrose/Sodium Chloride 1,000 ml @ 100 mls/hr Q10H IV Last administered on 04/27/20at 10:24; Start 04/26/20 at 15:00; Stop 05/26/20 at 14:59 Diphenhydramine HCl (Benadryl) 25 mg Q6H PRN ORAL Itching; Start 04/19/20 at 19:00; Stop 05/19/20 at 18:59 Docusate Sodium (Colace) 100 mg TWICE A DAY ORAL Last administered on 04/27/20at 08:38; Start 04/26/20 at 18:00; Stop 05/26/20 at 17:59 Dronabinol (Marinol) 2.5 mg Q8H ORAL Last administered on 04/27/20at 08:39; Start 04/20/20 at 17:00; Stop 07/18/20 at 20:59 Glipizide (Glucotrol) 10 mg BIAC ORAL Last administered on 04/27/20at 05:59; Start 04/20/20 at 16:30; Stop 05/20/20 at 16:29 Hydromorphone HCl (Dilaudid) 0.5 mg Q2H PRN IVP Severe Pain (Pain Scale 7-10); Start 04/27/20 at 11:30; Stop 05/03/20 at 18:44 Insulin Detemir (Levemir) 20 units BEDTIME SUBQ Last administered on 04/25/20at 20:24; Start 04/20/20 at 21:00; Stop 07/19/20 at 20:59 Iron Sucrose 100 mg/Sodium Chloride 60 ml @ 240 mls/hr QHS IVPB Last administered on 04/26/20at 21:25; Start 04/26/20 at 21:00; Stop 04/30/20 at 21:14 Levothyroxine Sodium (Synthroid) 150 mcg DAILY@0630 ORAL Last administered on 04/27/20at 05:59; Start 04/21/20 at 06:30; Stop 05/21/20 at 06:29 Lisinopril (PriniviL) 40 mg DAILY ORAL Last administered on 04/27/20at 08:39; Start 04/20/20 at 11:15; Stop 05/20/20 at 11:14 Mineral Oil (Mineral Oil) 30 ml DAILYPRN PRN ORAL Constipation Last administered on 04/24/20at 14:58; Start 04/22/20 at 16:15; Stop 05/22/20 at 16:14 Ondansetron HCl (Zofran) 4 mg Q6H PRN IVP Nausea & Vomiting; Start 04/19/20 at 13:00; Stop 05/19/20 at 12:59 Oxycodone HCl (Roxicodone) 10 mg Q3H PRN ORAL Moderate Pain (Pain Scale 4-6) Last administered on 04/26/20at 23:32; Start 04/26/20 at 18:45; Stop 05/03/20 at 18:44 Pantoprazole (Protonix) 40 mg BEDTIME ORAL Last administered on 04/26/20at 20:41; Start 04/19/20 at 21:00; Stop 05/19/20 at 20:59 Tamsulosin HCl (Flomax) 0.4 mg BEDTIME ORAL Last administered on 04/26/20at 20:41; Start 04/19/20 at 21:00; Stop 05/19/20 at 20:59 Temazepam (Restoril) 15 mg HSPRN PRN ORAL Insomnia; Start 04/26/20 at 11:30; Stop 05/03/20 at 11:29 Laboratory Laboratory Tests 04/27/20 05:30: White Blood Count 8.0#, Red Blood Count 2.48L, Hemoglobin 9.1L, Hematocrit 27.5L , Mean Corpuscular Volume 111H, Mean Corpuscular Hemoglobin 36.6H, Mean Corpuscular Hemoglobin Concent 33.0, Red Cell Distribution Width 15.7H, Platelet Count 452H, Mean Platelet Volume 6.6, Neutrophils (%) (Auto) , Lymphocytes (%) (Auto) , Monocytes (%) (Auto) , Eosinophils (%) (Auto) , Basophils (%) (Auto) , Differential Total Cells Counted 100, Neutrophils % (Manual) 83H, Lymphocytes % (Manual) 11L, Monocytes % (Manual) 5, Eosinophils % (Manual) 1, Basophils % (Manual) 0, Band Neutrophils 0, Platelet Estimate IncreasedH, Platelet Morphol ogy Normal, Hypochromasia 1+, Anisocytosis 1+, Macrocytosis 1+ Plan: Pt seen. Discussed with RN, PT & spine srgn Dr. Anguiano. Pain level 4 / 10 on the visual-analog pain scale after revision surgery yesterday for leg weakness. Today, pt states that leg pain is markedly improved; and leg strength is markedly stronger. PT is very pleased; surgeon aware. Mild fevers; chronic THC inhalation. I strongly encouraged incentive spirometer usage. Pt agrees to comply. Marinol working well. No evidence for oversedation. No SOB/CP. Marinol frequency of q8 hours tolerated well; will continue current dosing. While in the hospital, continue to alternate po prn oxycodone-IR with prn IV Dilaudid. Rx for Percocet #50 provided last week for outpatient pain medication usage. Dr Anguiano requesting pt to txfr to [facility]. Navneet Huitron MD Apr 27, 2020 13:42
--- NOTE | 2020-04-27 14:45 | NUR ---
INSURANCE CLINICALS/REVIEW FAXED TO [facility] #[phone] FAX# [phone]
[2020-04-27 16:00] VITALS: BP 123/75
--- NOTE | 2020-04-27 16:20 | NUR ---
*-*DISCHARGE PLANNING*-* PATIENT HAS BEEN REFERRED TO: [facility] P: [phone] S/W AMELIA, PT HAS TO BE AFEBRILE FOR 24 HOURS, WILL FOLLOW UP TOMORROW 04/28/20
--- NOTE | 2020-04-27 17:10 | NUR ---
NURSE NOTES: There is an order to collect Urine; Specimen cup provided to patient to collect urine;
--- NOTE | 2020-04-27 17:12 | NUR ---
NURSE NOTES: Spoke to regarding patient and new order received. Order read back and carried out.
--- NOTE | 2020-04-27 17:54 | Diagnostic Imaging Report ---
EXAM: XR Chest, 1 View CLINICAL HISTORY: POST-OP TECHNIQUE: Frontal view of the chest. COMPARISON: Chest x-ray March 19, 2015 FINDINGS: Lungs: No consolidation. Pleural space: No pleural effusion. No pneumothorax. Heart: Unremarkable. No cardiomegaly. IMPRESSION: No acute cardiopulmonary abnormality.
--- NOTE | 2020-04-27 18:33 | Orthopedic Spine Progress Note ---
Ortho Spine - Progress Note Subjective Symptoms: c/o post-op back pain, improved - as compared to pre-op Objective Vital Signs: Last 24 Hour Vital Signs Date Time Temp Pulse Resp B/P (MAP) Pulse Ox O2 Delivery O2 Flow Rate FiO2 04/27/20 17:39 99.9 04/27/20 16:00 100.4 90 20 123/75 (91) 98 04/27/20 12:27 100.2 04/27/20 12:00 100.2 86 20 133/68 (89) 95 04/27/20 09:10 99.0 04/27/20 09:00 Room Air 04/27/20 08:39 89 145/64 04/27/20 08:39 145/64 04/27/20 08:00 101.0 89 20 145/64 (91) 98 04/27/20 04:00 98.8 82 18 162/87 (112) 99 04/27/20 00:00 98.4 84 20 163/96 (118) 100 04/26/20 21:00 Room Air 04/26/20 20:41 93 150/80 04/26/20 20:00 99.5 93 20 150/80 (103) 98 04/26/20 19:18 98.2 I&O: Intake and Output 04/26/20 04/27/20 19:00 07:00 Intake Total 1000 ml 1600 ml Output Total 630 ml 925 ml Balance 370 ml 675 ml Intake Oral 240 ml IV Total 1000 ml 1360 ml Output Urine Total 600 ml 925 ml Estimated Blood Loss 30 ml # Voids 3 3 Wound: clean, intact Drains: none Neuro Status: abnormal - but improved as compared to preop Assessment Procedure Performed: Facetectomy and redo laminectomy L23 L side Plan Plan: PT, pain management, discharge plan - to [facility] tomorrow Tacho Anguiano MD Apr 27, 2020 18:32
[2020-04-27] MEDS: HYDROmorphone 1mg/ml Carpuject IVP PRN ×2 (18:35→23:05)
[2020-04-27 20:00] VITALS: BP 124/66
--- NOTE | 2020-04-27 20:04 | NUR ---
NURSE HAND-OFF: Important Events on Shift:Controlling Fever, pain management, try to collect Urine Analysis Patient Status: Diet: Pending Orders: Pending Results/Labs: Pending MD notification: Latest Vital Signs: Temperature 99.9 , Pulse 90 , B/P 123 /75 , Respiratory Rate 20 , O2 SAT 98 , Nasal Cannula, O2 Flow Rate 3 . Vital Sign Comment: Latest Alberts Fall Score: 35 Fall Risk: Medium Risk Safety Measures: Call light Within Reach, Bed Alarm Zone 2, Side Rails Side Rails x2, Bed position Low and Locked. Fall Precautions: Yellow Socks Yellow Gown Door Sign Patient Fall Education Report given to .
--- NOTE | 2020-04-27 20:05 | NUR ---
NURSE NOTES: Received report & pt from NIKOLAY Zurita. Pt in bed, a&xo4, in room air. No s/s of acute distress & no c/o pain at this time. Surgical dressing C/D/I. IV site intact with IVF running as ordered. Urine specimen needed for UA & urine culture & pt made aware & verbalized understanding. Bed in lowest position, call light within reach. Will continue to monitor.
[2020-04-27] MEDS: Levemir Flexpen SUBQ SCH (21:30)
[2020-04-27] MEDS: Tamsulosin 0.4mg cap ORAL SCH (21:30)
[2020-04-27] MEDS: Atorvastatin 20mg tab ORAL SCH (21:30)
[2020-04-27] MEDS: Iron Sucrose 100 MG in NS 55 ML IVPB SCH (21:32)
--- NOTE | 2020-04-27 22:12 | NUR ---
NURSE NOTES: Urine specimen sent down to lab for UA & urine culture.
[2020-04-27 22:27] LABS: APPEARANCE,URINE CLEAR; BILIRUBIN, URINE NEGATIVE (NEGATIVE); COLOR,URINE PALE YELLOW; GLUCOSE, URINE (UA) 3+ (NEGATIVE); KETONES,URINE NEGATIVE (NEGATIVE); LEUKOCYTE ESTERASE ,URINE NEGATIVE (NEGATIVE); NITRITE,URINE NEGATIVE (NEGATIVE); PH,URINE 6.5 (4.5-8.0); PROTEIN,URINE NEGATIVE (NEGATIVE); UROBILINOGEN,URINE NORMAL MG/DL (0.0-1.0)
[2020-04-28] VITALS: BP 129/65
[2020-04-28] MEDS: Dronabinol 2.5mg Cap ORAL SCH ×3 (00:06→18:01)
--- NOTE | 2020-04-28 00:09 | Cardiology Progress Note ---
Assessment/Plan Status Narrative 1. HTN 2. DM 3. LS spine discogenic Dz, s/p LS spine surgery 4. Hypercholesterolemia 5. Anemia due to blood loss - 6. Post op pain S/P second spine surgery 04/26/20 7. fever Assessment/Plan Labs reviewed, CBC UA OK CXR negativ Monitor BP Ambulate Pain management PT/OT DVT PX IV iron DC as per Dr. Anguiano Subjective Cardiovascular: Reports: no symptoms Respiratory: Reports: no symptoms Gastrointestinal/Abdominal: Reports: constipated Genitourinary: Reports: no symptoms Subjective 04/20/20- S/P LS spine surgery yesterday Pain controlled on [employer]PUT[employer]STRATOR Denies CP, ambulated 04/22/20- c/o pain, Hgb down, transfusion ordered 04/23- s/p transfusion of 2 U PRBC yesterday Hgb 9.1 , Feeling much better 04/24 s/p transfusion 2 U PRBC Hgb 9.1 04/25- Had BM, ambulating with walker, awaiting placement at rehab 04/26 S/P L/S spine surgery today. w.o. complications 04/27 has had low grade fever. Objective Last 24 Hour Vital Signs Date Time Temp Pulse Resp B/P (MAP) Pulse Ox O2 Delivery O2 Flow Rate FiO2 04/27/20 21:31 84 124/66 04/27/20 21:00 Room Air 04/27/20 20:00 99.8 84 18 124/66 (85) 99 04/27/20 19:05 99.9 04/27/20 17:39 99.9 04/27/20 16:00 100.4 90 20 123/75 (91) 98 04/27/20 12:27 100.2 04/27/20 12:00 100.2 86 20 133/68 (89) 95 04/27/20 09:10 99.0 04/27/20 09:00 Room Air 04/27/20 08:39 89 145/64 04/27/20 08:39 145/64 04/27/20 08:00 101.0 89 20 145/64 (91) 98 04/27/20 04:00 98.8 82 18 162/87 (112) 99 Cardiovascular: normal rate Respiratory/Chest: lungs clear Abdomen: non tender, soft, no organomegaly Extremities: non-tender, no calf tenderness, no swelling Intake and Output 2/17/21 2/18/21 19:00 07:00 Intake Total 1700 ml 100 ml Output Total 650 ml Balance 1050 ml 100 ml Intake Oral 600 ml IV Total 1100 ml 100 ml Output Urine Total 650 ml Laboratory Tests Test 04/27/20 05:30 04/27/20 22:00 White Blood Count 8.0 K/UL (4.8-10.8) # Red Blood Count 2.48 M/UL (4.70-6.10) L Hemoglobin 9.1 G/DL (14.2-18.0) L Hematocrit 27.5 % (42.0-52.0) L Mean Corpuscular Volume 111 FL (80-99) H Mean Corpuscular Hemoglobin 36.6 PG (27.0-31.0) H Mean Corpuscular Hemoglobin Concent 33.0 G/DL (32.0-36.0) Red Cell Distribution Width 15.7 % (11.6-14.8) H Platelet Count 452 K/UL (150-450) H Mean Platelet Volume 6.6 FL (6.5-10.1) Neutrophils (%) (Auto) % (45.0-75.0) Lymphocytes (%) (Auto) % (20.0-45.0) Monocytes (%) (Auto) % (1.0-10.0) Eosinophils (%) (Auto) % (0.0-3.0) Basophils (%) (Auto) % (0.0-2.0) Differential Total Cells Counted 100 Neutrophils % (Manual) 83 % (45-75) H Lymphocytes % (Manual) 11 % (20-45) L Monocytes % (Manual) 5 % (1-10) Eosinophils % (Manual) 1 % (0-3) Basophils % (Manual) 0 % (0-2) Band Neutrophils 0 % (0-8) Platelet Estimate Increased H Platelet Morphology Normal Hypochromasia 1+ Anisocytosis 1+ Macrocytosis 1+ Urine Color Pale yellow Urine Appearance Clear Urine pH 6.5 (4.5-8.0) Urine Specific [place] 1.010 (1.005-1.035) Urine Protein Negative (NEGATIVE) Urine Glucose (UA) 3+ (NEGATIVE) H Urine Ketones Negative (NEGATIVE) Urine Blood Negative (NEGATIVE) Urine Nitrite Negative (NEGATIVE) Urine Bilirubin Negative (NEGATIVE) Urine Urobilinogen Normal MG/DL (0.0-1.0) Urine Leukocyte Esterase Negative (NEGATIVE) Urine RBC 0 /HPF (0 - 0) Urine WBC 0 /HPF (0 - 0) Urine Squamous Epithelial Cells Occasional /LPF Urine Bacteria Occasional /HPF (NONE) Shemar Garcia MD Apr 28, 2020 00:09
--- NOTE | 2020-04-28 00:10 | NUR ---
NURSE NOTES: Given pt's midnight meds. Pt in no acute distress. Pain is better after Dilaudid was given. Now 2/10 pain.
[2020-04-28] MEDS: HYDROmorphone 1mg/ml Carpuject IVP PRN ×3 (03:42→14:43)
[2020-04-28 04:00] VITALS: BP 123/65
[2020-04-28] MEDS: GlipiZIDE 5mg tab ORAL SCH ×2 (05:38→18:01)
--- NOTE | 2020-04-28 06:00 | Pain Management Progress Note ---
Allergies: Coded Allergies: CODEINE (Verified Allergy, Unknown, 01/25/11) WARFARIN (Verified Allergy, Unknown, 10/22/08) Uncoded Allergies: CODEINE/WARFARIN (Allergy, Intermediate, STOMACH ACHE, 10/13/12) Vitals Vital Signs Date Time Temp Pulse Resp B/P (MAP) Pulse Ox O2 Delivery O2 Flow Rate FiO2 04/28/20 04:00 98.6 76 18 123/65 (84) 96 04/28/20 00:00 97.6 77 17 129/65 (86) 98 Medications Current Medications Acetaminophen (Tylenol) 650 mg Q4H PRN ORAL Temp >100.5 Last administered on 04/27/20at 17:09; Start 04/26/20 at 18:45; Stop 05/26/20 at 18:44 Acetaminophen (Tylenol) 650 mg Q4H PRN ORAL Mild Pain (Pain Scale 1-3); Start 04/26/20 at 18:45; Stop 05/26/20 at 18:44 Acetaminophen (Tylenol) 650 mg Q4H PRN ORAL headache Last administered on 04/27/20at 11:57; Start 04/19/20 at 13:00; Stop 05/19/20 at 12:59 Al Hydroxide/Mg Hydroxide (Mylanta) 30 ml Q6H PRN ORAL gerd; Start 04/19/20 at 19:00; Stop 05/19/20 at 18:59 Amlodipine Besylate (Norvasc) 5 mg Q12HR ORAL Last administered on 04/27/20at 21:31; Start 04/24/20 at 21:00; Stop 05/20/20 at 20:59 Atorvastatin Calcium (Lipitor) 10 mg BEDTIME ORAL Last administered on 04/27/20at 21:30; Start 04/20/20 at 21:00; Stop 07/19/20 at 20:59 Dextrose/Sodium Chloride 1,000 ml @ 100 mls/hr Q10H IV Last administered on 04/27/20at 21:31; Start 04/26/20 at 15:00; Stop 05/26/20 at 14:59 Diphenhydramine HCl (Benadryl) 25 mg Q6H PRN ORAL Itching; Start 04/19/20 at 19:00; Stop 05/19/20 at 18:59 Docusate Sodium (Colace) 100 mg TWICE A DAY ORAL Last administered on 04/27/20at 17:08; Start 04/26/20 at 18:00; Stop 05/26/20 at 17:59 Dronabinol (Marinol) 2.5 mg Q8H ORAL Last administered on 04/28/20at 00:06; Start 04/20/20 at 17:00; Stop 07/18/20 at 20:59 Glipizide (Glucotrol) 10 mg BIAC ORAL Last administered on 04/28/20at 05:38; Start 04/20/20 at 16:30; Stop 05/20/20 at 16:29 Hydromorphone HCl (Dilaudid) 0.5 mg Q2H PRN IVP Severe Pain (Pain Scale 7-10) Last administered on 04/28/20at 03:42; Start 04/27/20 at 11:30; Stop 05/03/20 at 18:44 Insulin Detemir (Levemir) 20 units BEDTIME SUBQ Last administered on 04/27/20at 21:30; Start 04/20/20 at 21:00; Stop 07/19/20 at 20:59 Iron Sucrose 100 mg/Sodium Chloride 60 ml @ 240 mls/hr QHS IVPB Last administered on 04/27/20at 21:32; Start 04/26/20 at 21:00; Stop 04/30/20 at 21:14 Levothyroxine Sodium (Synthroid) 150 mcg DAILY@0630 ORAL Last administered on 04/28/20at 05:38; Start 04/21/20 at 06:30; Stop 05/21/20 at 06:29 Lisinopril (PriniviL) 40 mg DAILY ORAL Last administered on 04/27/20at 08:39; Start 04/20/20 at 11:15; Stop 05/20/20 at 11:14 Mineral Oil (Mineral Oil) 30 ml DAILYPRN PRN ORAL Constipation Last administered on 04/24/20at 14:58; Start 04/22/20 at 16:15; Stop 05/22/20 at 16:14 Ondansetron HCl (Zofran) 4 mg Q6H PRN IVP Nausea & Vomiting; Start 04/19/20 at 13:00; Stop 05/19/20 at 12:59 Oxycodone HCl (Roxicodone) 10 mg Q3H PRN ORAL Moderate Pain (Pain Scale 4-6) Last administered on 04/26/20at 23:32; Start 04/26/20 at 18:45; Stop 05/03/20 at 18:44 Pantoprazole (Protonix) 40 mg BEDTIME ORAL Last administered on 04/27/20at 21:30; Start 04/19/20 at 21:00; Stop 05/19/20 at 20:59 Tamsulosin HCl (Flomax) 0.4 mg BEDTIME ORAL Last administered on 04/27/20at 21:30; Start 04/19/20 at 21:00; Stop 05/19/20 at 20:59 Temazepam (Restoril) 15 mg HSPRN PRN ORAL Insomnia; Start 04/26/20 at 11:30; Stop 05/03/20 at 11:29 Laboratory Laboratory Tests 04/27/20 22:00: Urine Color Pale yellow, Urine Appearance Clear, Urine pH 6.5, Urine Specific [place] 1.010, Urine Protein Negative, Urine Glucose (UA) 3+H, Urine Ketones Negative, Urine Blood Negative, Urine Nitrite Negative, Urine Bilirubin Negative, Urine Urobilinogen Normal, Urine Leukocyte Esterase Negative, Urine RBC 0, Urine WBC 0, Urine Squamous Epithelial Cells Occasional, Urine Bacteria Occasional Plan: Pt seen. Discussed with RN Rowena & spine srgn Dr. Anguiano. Pain level 5 / 10 on the visual-analog pain scale. Pt requesting prn dilaudid more frequently overnight. No fevers over past 12 hours with improved incentive spirometer usage. Marinol working well. No evidence for oversedation. No SOB/CP. Marinol frequency of q8 hours tolerated well; will continue current dosing. While in the hospital, continue to alternate po prn oxycodone-IR with prn IV Dilaudid. Rx for Percocet #50 provided last week for outpatient pain medication usage. Dr Anguiano requesting pt to txfr to [facility]. Navneet Huitron MD Apr 28, 2020 06:00
[2020-04-28] MEDS: D5 1/2NS 1,000 ML IV SCH ×2 (06:19→17:00)
--- NOTE | 2020-04-28 06:28 | NUR ---
NURSE HAND-OFF: Important Events on Shift:pain management, iv hydration, urine specimen collected for UA & urine culture Patient Status: stable Diet: CCHO (M) Pending Orders: none Pending Results/Labs:none Pending MD notification:none Latest Vital Signs: Temperature 98.6 , Pulse 76 , B/P 123 /65 , Respiratory Rate 18 , O2 SAT 96 , Nasal Cannula, O2 Flow Rate 3 . Vital Sign Comment: none Latest Alberts Fall Score: 35 Fall Risk: Medium Risk Safety Measures: Call light Within Reach, Bed Alarm Zone 2, Side Rails Side Rails x2, Bed position Low and Locked. Fall Precautions: Yellow Socks Yellow Gown Door Sign Patient Fall Education Report given to NIKOLAY Osei. 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
--- NOTE | 2020-04-28 07:20 | NUR ---
NURSE NOTES: Patient alert x4; on Nasal Cannula 2 Liters, no sign of distress, no sing of shortness of breath; no chest pain; IV Left-Upper arm IV D51/2NS running at 100cc; SCD on; Urinal at the bed side; side rails up x2, breaks engaged, bed at lowest position; walker within reach; patient instructed to call for help as needed, call light within reach; will keep monitoring; will care out the plan of care;
[2020-04-28 08:00] VITALS: BP 141/75
[2020-04-28] MEDS: Docusate 100mg cap ORAL SCH ×2 (08:29→18:00)
[2020-04-28] MEDS: Lisinopril 20mg tab ORAL SCH (08:29)
[2020-04-28 12:00] VITALS: BP 157/77
--- NOTE | 2020-04-28 12:55 | NUR ---
NURSE NOTES: Jesica from [facility] called to find out about patient's temperature; Jesica is aware of the patient's last temperature from 2000 to 1200.
--- NOTE | 2020-04-28 14:26 | NUR ---
CASE MANAGEMENT:REVIEW 04/28/20 SI: POD#9.....S/P REVISION OF LUMBAR FUSION POD #2...FACETECTOMY AND REDO LAMINECTOMY L23 SIDE 98.5 83 18 157/77 99% ON RA NO LABS FOR TODAY IS: IVF@100/HR IV VENOFER QHS NORVASC PO Q12 SYNTHROID PO QD LIPITOR PO QHS LEVEMIR SQ QHS GLIPIZIDE PO BID OXYCODONE PO Q3HRS PRN IV DILAUDID Q2HRS PRN LISINOPRIL PO QD FLOMAX PO QHS PROTONIX PO QHS : MED/SURG STATUS DCP: REHAB UNIT PLAN: ORDER FOR PATIENT TO BE REFERRED TO [facility] PATIENT NEEDS TO BE AFEBRILE X24 HR PRIOR TO [facility] ACCEPTING HIM
--- NOTE | 2020-04-28 15:30 | NUR ---
INSURANCE CLINICALS/REVIEW FAXED TO [facility] #[phone] FAX# [phone]
[2020-04-28 16:00] VITALS: BP 139/68
--- NOTE | 2020-04-28 17:26 | NUR ---
NURSE NOTES: Spoke to regarding patient and ok to discharge today. Order noted and carried out.
--- NOTE | 2020-04-28 17:38 | NUR ---
*-*DISCHARGE PLANNED*-* PATIENT HAS BEEN ACCEPTED AND WILL BE DISCHARGE TO: [facility] P: [phone] FOR NURSE FOR NURSE REPORT ROOM# 244 [facility] TRANSPORTATION SET FOR 7:45PM S/W FLIP [id number]. PLACED A REGGIE TO PATIENTS FAMILY, CIPRIANO WOLFE, NO ANSWER, LEFT VOICE MESSAGE.
--- NOTE | 2020-04-28 17:41 | Orthopedic Spine Progress Note ---
Ortho Spine - Progress Note Subjective Symptoms: c/o post-op back pain, improved - as compared to pre-op Objective Vital Signs: Last 24 Hour Vital Signs Date Time Temp Pulse Resp B/P (MAP) Pulse Ox O2 Delivery O2 Flow Rate FiO2 04/28/20 16:00 99.2 80 19 139/68 (91) 99 04/28/20 15:13 98.5 04/28/20 12:00 98.5 83 18 157/77 (103) 99 04/28/20 09:14 98.6 04/28/20 09:00 Room Air 04/28/20 08:30 85 141/75 04/28/20 08:29 141/75 04/28/20 08:00 99.0 85 18 141/75 (97) 100 04/28/20 04:00 98.6 76 18 123/65 (84) 96 04/28/20 00:00 97.6 77 17 129/65 (86) 98 04/27/20 21:31 84 124/66 04/27/20 21:00 Room Air 04/27/20 20:00 99.8 84 18 124/66 (85) 99 04/27/20 19:05 99.9 I&O: Intake and Output 04/27/20 04/28/20 19:00 07:00 Intake Total 1700 ml 1360 ml Output Total 650 ml Balance 1050 ml 1360 ml Intake Oral 600 ml 360 ml IV Total 1100 ml 1000 ml Output Urine Total 650 ml # Voids 2 Wound: clean Drains: none Neuro Status: abnormal - but improving Assessment Procedure Performed: Facetectomy and redo laminectomy L23 L side Plan Plan: PT, pain management, discharge plan - to [facility] Tacho Anguiano MD Apr 28, 2020 17:41
[2020-04-28] MEDS ORDERED: Tubing Blood Filter IV ONE (18:21)
[2020-04-28] MEDS ORDERED: NS 500ML ONE (18:21)
--- NOTE | 2020-04-28 18:51 | NUR ---
NURSE NOTES: Telephone report given to [facility] to Alfredo;
--- NOTE | 2020-04-28 19:05 | NUR ---
NURSE NOTES: Received report from NIKOLAY Osei. Pt is in bed A&Ox4. Call light within reach, side rails up x3, bed locked and in lowest position, IVF infusing well. Pt is in no distress at this time. Awaiting ambulance for patient to be transferred to [facility], report already given to nurse at the facility.
--- NOTE | 2020-04-28 19:09 | NUR ---
NURSE HAND-OFF: Important Events on Shift:Discharge paper work done; Telephone report given to [facility]; Patient Status: Diet: Pending Orders: Pending Results/Labs: Pending MD notification: Latest Vital Signs: Temperature 99.2 , Pulse 80 , B/P 139 /68 , Respiratory Rate 19 , O2 SAT 99 , Nasal Cannula, O2 Flow Rate 3 . Vital Sign Comment: Latest Alberts Fall Score: 35 Fall Risk: Medium Risk Safety Measures: Call light Within Reach, Bed Alarm Zone 2, Side Rails Side Rails x2, Bed position Low and Locked. Fall Precautions: Yellow Socks Yellow Gown Door Sign Patient Fall Education Report given to .
[2020-04-28] MEDS: Iron Sucrose 100 MG in NS 55 ML IVPB SCH (21:18)
[2020-04-28] MEDS: Tamsulosin 0.4mg cap ORAL SCH (21:19)
[2020-04-28] MEDS: Atorvastatin 20mg tab ORAL SCH (21:19)
[2020-04-28 21:20] VITALS: BP 131/70
[2020-04-28] MEDS: Levemir Flexpen SUBQ SCH (21:26)
--- NOTE | 2020-04-28 22:35 | NUR ---
NURSE NOTES: Patient was discharged to [facility] via ambulance. All belongings were sent with the patient.
--- NOTE | 2020-04-29 16:13 | NUR ---
INSURANCE CLINICALS/REVIEW FAXED TO [facility] #[phone] FAX# [phone]
== END 2020-04-28 22:35 | disposition short-term general hospital (02) | DRG 460 ==
LOC: UNDOADMIN 05:56 → 4E 05:56 → SDSOVERFLO 05:59 → 4E 16:31
PROC: 0QP004Z Removal of Internal Fixation Device from Lumbar Vertebra, Open Approach (ICD-10-PCS; principal; 2020-04-19 08:30)
PROC: 0SG0071 Fusion of Lumbar Vertebral Joint with Autologous Tissue Substitute, Posterior Approach, Posterior Column, Open Approach (ICD-10-PCS; principal; 2020-04-19 08:30)
PROC: 01NB0ZZ Release Lumbar Nerve, Open Approach (ICD-10-PCS; principal; 2020-04-19 08:30)
PROC: 01NB0ZZ Release Lumbar Nerve, Open Approach (ICD-10-PCS; 2020-04-26)
DX: M51.16 Intervertebral disc disorders with radiculopathy, lumbar region (principal); M47.26 Other spondylosis with radiculopathy, lumbar region; M48.061 Spinal stenosis, lumbar region without neurogenic claudication; G89.18 Other acute postprocedural pain; D50.0 Iron deficiency anemia secondary to blood loss (chronic); R50.82 Postprocedural fever; E11.9 Type 2 diabetes mellitus without complications; I10 Essential (primary) hypertension; E05.90 Thyrotoxicosis, unspecified without thyrotoxic crisis or storm; E78.00 Pure hypercholesterolemia, unspecified; Z98.1 Arthrodesis status; G47.00 Insomnia, unspecified
CPT/HCPCS: 36415; 71045; 72020; 72148; 76000; 80048; 81001; 82962; 85007; 85025; 86850; 86900; 86901; 86920; 87081; 87086; 94003; 94150; J1815; J2710; S5561